=== PATIENT | female | born 1970 | race Caucasian/White ===

== ENCOUNTER → 2017-01-06 | Outpatient (CLI) | payer OTHER ==
[~2017-01-06] MED LIST: ALPR0.25 PO; AMLO5TAB2 PO; BACL10TA PO; CYAN10006 PO; DIPH50CA PO; DOCU-143 PO; FOLI0.8C PO; HYDR-3454 PO; HYDR12.56 PO; MELA1TAB11 PO; MELA5CAP PO; MELO7.5O PO; NORE-106 PO; OLME20TA22 PO; OXYC-197 PO; SIME125C79 PO; TRAM50TA2 PO; [UNRECOGNIZED DRUG - MIXTURE] PO
--- OUTSIDE RECORDS SUMMARY | 2017-01-06 10:32 | XMS REPORT | Continuity of Care Document ---
Author Author [facility] Address Unknown Phone Unavailable Allergies Active Description Code Type Severity Reaction Onset Reported/Identified Relationship to Patient Clinical Status Yes benzocaine Drug Allergy N/A N/A 12/21/2009 Yes benzocaine topical Drug Allergy 12/21/2009 Yes benzocaine [id number] Drug Allergy Unknown RASH 01/18/2016 Medications Problems Date Dx Coded Attending Type Code Diagnosis Diagnosed By 10/06/2009 TIMA ZHOU DO V72.9 ROUTINE GENITOURINARY EXAM 10/06/2009 V72.9 ROUTINE GENITOURINARY EXAM 10/06/2009 V72.9 ROUTINE GENITOURINARY EXAM 10/06/2009 V72.9 ROUTINE GENITOURINARY EXAM 10/06/2009 V72.9 ROUTINE GENITOURINARY EXAM 10/06/2009 ROSA CORLEY APRN V72.9 ROUTINE GENITOURINARY EXAM 10/06/2009 TIMA ZHOU DO V72.9 ROUTINE GENITOURINARY EXAM 10/06/2009 TIMA ZHOU DO V72.9 ROUTINE GENITOURINARY EXAM 11/24/2009 TIMA ZHOU DO 692.9 Dermatitis 11/24/2009 692.9 Dermatitis 11/24/2009 692.9 Dermatitis 11/24/2009 692.9 Dermatitis 11/24/2009 692.9 Dermatitis 11/24/2009 ROSA CORLEY APRN 692.9 Dermatitis 11/24/2009 TIMA ZHOU DO 692.9 Dermatitis 11/24/2009 TIMA ZHOU DO 692.9 Dermatitis 12/21/2009 TIMA ZHOU DO 461.8 Other Acute Sinusitis 12/21/2009 461.8 Other Acute Sinusitis 12/21/2009 461.8 Other Acute Sinusitis 12/21/2009 461.8 Other Acute Sinusitis 12/21/2009 461.8 Other Acute Sinusitis 12/21/2009 ROSA CORLEY APRN S 461.8 Other Acute Sinusitis 12/21/2009 TIMA ZHOU DO K 461.8 Other Acute Sinusitis 12/21/2009 TIMA ZHOU DO K 461.8 Other Acute Sinusitis 05/11/2010 TIMA ZHOU DO K 054.9 HERPES SIMPLEX ANY SITE 05/11/2010 054.9 HERPES SIMPLEX ANY SITE 05/11/2010 054.9 HERPES SIMPLEX ANY SITE 05/11/2010 054.9 HERPES SIMPLEX ANY SITE 05/11/2010 054.9 HERPES SIMPLEX ANY SITE 05/11/2010 ROSA CORLEY APRN S 054.9 HERPES SIMPLEX ANY SITE 05/11/2010 TIMA ZHOU DO K 054.9 HERPES SIMPLEX ANY SITE 05/11/2010 TIMA ZHOU DO K 054.9 HERPES SIMPLEX ANY SITE 10/29/2010 TIAM ZHOU DO V25.01 CONTRACEPTION COUNSELING- ORAL CONTRACEPTION 10/29/2010 TIMA ZHOU DO V65.45 Std Counseling 10/29/2010 TIMA ZHOU DO V74.5 STD SCREEN 10/29/2010 V25.01 CONTRACEPTION COUNSELING- ORAL CONTRACEPTION 10/29/2010 V65.45 Std Counseling 10/29/2010 V74.5 STD SCREEN 10/29/2010 V25.01 CONTRACEPTION COUNSELING- ORAL CONTRACEPTION 10/29/2010 V65.45 Std Counseling 10/29/2010 V74.5 STD SCREEN 10/29/2010 V25.01 CONTRACEPTION COUNSELING- ORAL CONTRACEPTION 10/29/2010 V65.45 Std Counseling 10/29/2010 V74.5 STD SCREEN 10/29/2010 V25.01 CONTRACEPTION COUNSELING- ORAL CONTRACEPTION 10/29/2010 V65.45 Std Counseling 10/29/2010 V74.5 STD SCREEN 10/29/2010 ROSA CORLEY APRN S V25.01 CONTRACEPTION COUNSELING- ORAL CONTRACEPTION 10/29/2010 ROSA CORLEY APRN S V65.45 Std Counseling 10/29/2010 ROSA CORLEY APRN S V74.5 STD SCREEN 10/29/2010 TIMA ZHOU DO V25.01 CONTRACEPTION COUNSELING- ORAL CONTRACEPTION 10/29/2010 TIMA ZHOU DO V65.45 Std Counseling 10/29/2010 TIMA ZHOU DO V74.5 STD SCREEN 10/29/2010 TIMA ZHOU DO Denny V25.01 CONTRACEPTION COUNSELING- ORAL CONTRACEPTION 10/29/2010 LJ ZHOU DOShahab Baldwin V65.45 Std Counseling 10/29/2010 LJ ZHOU DOShahab Baldwin V74.5 STD SCREEN 12/26/2010 LJ ZHOU DOShahab Baldwin 078.12 PLANTAR WART 12/26/2010 078.12 PLANTAR WART 12/26/2010 078.12 PLANTAR WART 12/26/2010 078.12 PLANTAR WART 12/26/2010 078.12 PLANTAR WART 12/26/2010 ROSA CORLEY APRN 078.12 PLANTAR WART 12/26/2010 WINNIE BADILLOTIMA 078.12 PLANTAR WART 12/26/2010 IWNNIE BADILLO TIMA K 078.12 PLANTAR WART 02/18/2011 WINNIE BADILLO TIMA K 723.1 CERVICALGIA 02/18/2011 723.1 CERVICALGIA 02/18/2011 723.1 CERVICALGIA 02/18/2011 723.1 CERVICALGIA 02/18/2011 723.1 CERVICALGIA 02/18/2011 ROSA CORLEY APRN 723.1 CERVICALGIA 02/18/2011 WINNIE BADILLOTIMA 723.1 CERVICALGIA 02/18/2011 WINNIE BADILLO TIMA K 723.1 CERVICALGIA 03/13/2011 WINNIE BADILLO TIMA Denny V05.3 Hepatitis A Vaccine 03/13/2011 TIMA ZHOU DO Denny V06.5 Dt, Tetanus-diphtheria [td] ,tdap 03/13/2011 V05.3 Hepatitis A Vaccine 03/13/2011 V06.5 Dt, Tetanus-diphtheria [td] ,tdap 03/13/2011 V05.3 Hepatitis A Vaccine 03/13/2011 V06.5 Dt, Tetanus-diphtheria [td] ,tdap 03/13/2011 V05.3 Hepatitis A Vaccine 03/13/2011 V06.5 Dt, Tetanus-diphtheria [td] ,tdap 03/13/2011 V05.3 Hepatitis A Vaccine 03/13/2011 V06.5 Dt, Tetanus-diphtheria [td] ,tdap 03/13/2011 ROSA CORLEY APRN V05.3 Hepatitis A Vaccine 03/13/2011 ROSA CORLEY APRN V06.5 Dt, Tetanus-diphtheria [td] ,tdap 03/13/2011 TIMA ZHOU DO K V05.3 Hepatitis A Vaccine 03/13/2011 LJ ZHOU DOA K V06.5 Dt, Tetanus-diphtheria [td] ,tdap 03/13/2011 LJ ZHOU DOA K V05.3 Hepatitis A Vaccine 03/13/2011 LJ ZHOU DOA K V06.5 Dt, Tetanus-diphtheria [td] ,tdap 03/21/2011 WINNIE DO TIMA K 462 Acute Pharyngitis 03/21/2011 462 Acute Pharyngitis 03/21/2011 462 Acute Pharyngitis 03/21/2011 462 Acute Pharyngitis 03/21/2011 462 Acute Pharyngitis 03/21/2011 ROSA CORLEY APRN 462 Acute Pharyngitis 03/21/2011 TIMA ZHOU DO K 462 Acute Pharyngitis 03/21/2011 TIMA ZHOU DO K 462 Acute Pharyngitis 06/04/2011 TIMA ZHOU DO K 729.5 ARM PAIN 06/04/2011 729.5 ARM PAIN 06/04/2011 729.5 ARM PAIN 06/04/2011 729.5 ARM PAIN 06/04/2011 729.5 ARM PAIN 06/04/2011 ROSA CORLEY APRN 729.5 ARM PAIN 06/04/2011 TIMA ZHOU DO K 729.5 ARM PAIN 06/04/2011 TIMA ZHOU DO K 729.5 ARM PAIN 06/05/2011 LJ ZHOU DOA K 729.5 ARM PAIN 06/05/2011 729.5 ARM PAIN 06/05/2011 729.5 ARM PAIN 06/05/2011 729.5 ARM PAIN 06/05/2011 729.5 ARM PAIN 06/05/2011 ROSA CORLEY APRN S 729.5 ARM PAIN 06/05/2011 WINNIE BADILLO TIMA K 729.5 ARM PAIN 06/05/2011 WINNIE BADILLO TIMA K 729.5 ARM PAIN 06/19/2011 TIMA ZHOU DO K 401.1 HYPERTENSION, BENIGN ESSENTIAL 06/19/2011 TIMA ZHOU DO K 427.9 ARRHYTHMIA, CARDIAC (SINUS) 06/19/2011 401.1 HYPERTENSION, BENIGN ESSENTIAL 06/19/2011 427.9 ARRHYTHMIA, CARDIAC (SINUS) 06/19/2011 401.1 HYPERTENSION, BENIGN ESSENTIAL 06/19/2011 427.9 ARRHYTHMIA, CARDIAC (SINUS) 06/19/2011 401.1 HYPERTENSION, BENIGN ESSENTIAL 06/19/2011 427.9 ARRHYTHMIA, CARDIAC (SINUS) 06/19/2011 401.1 HYPERTENSION, BENIGN ESSENTIAL 06/19/2011 427.9 ARRHYTHMIA, CARDIAC (SINUS) 06/19/2011 BARNEY CLINICAL RESEARCH NURSE, ROSA S 401.1 HYPERTENSION, BENIGN ESSENTIAL 06/19/2011 BARNEY CLINICAL RESEARCH NURSE, ROSA S 427.9 ARRHYTHMIA, CARDIAC (SINUS) 06/19/2011 TIMA ZHOU DO K 401.1 HYPERTENSION, BENIGN ESSENTIAL 06/19/2011 TIMA ZHOU DO K 427.9 ARRHYTHMIA, CARDIAC (SINUS) 06/19/2011 TIMA ZHOU DO K 401.1 HYPERTENSION, BENIGN ESSENTIAL 06/19/2011 TIMA ZHOU DO K 427.9 ARRHYTHMIA, CARDIAC (SINUS) 09/27/2011 TIMA ZHOU DO K V25.9 CONTRACEPTION MANAGEMENT 09/27/2011 TIMA ZHOU DO K V76.2 CERVICAL CANCER SCREENING (PAP SMEAR) 09/27/2011 V25.9 CONTRACEPTION MANAGEMENT 09/27/2011 V76.2 CERVICAL CANCER SCREENING (PAP SMEAR) 09/27/2011 V25.9 CONTRACEPTION MANAGEMENT 09/27/2011 V76.2 CERVICAL CANCER SCREENING (PAP SMEAR) 09/27/2011 V25.9 CONTRACEPTION MANAGEMENT 09/27/2011 V76.2 CERVICAL CANCER SCREENING (PAP SMEAR) 09/27/2011 V25.9 CONTRACEPTION MANAGEMENT 09/27/2011 V76.2 CERVICAL CANCER SCREENING (PAP SMEAR) 09/27/2011 BARNEY CLINICAL RESEARCH NURSE, ROSA S V25.9 CONTRACEPTION MANAGEMENT 09/27/2011 BARNEY CLINICAL RESEARCH NURSE, ROSA S V76.2 CERVICAL CANCER SCREENING (PAP SMEAR) 09/27/2011 TIMA ZHOU DO K V25.9 CONTRACEPTION MANAGEMENT 09/27/2011 LJ ZHOU DOA K V76.2 CERVICAL CANCER SCREENING (PAP SMEAR) 09/27/2011 TIMA ZHOU DO K V25.9 CONTRACEPTION MANAGEMENT 09/27/2011 TIMA ZHOU DO K V76.2 CERVICAL CANCER SCREENING (PAP SMEAR) 06/19/2012 TIMA ZHOU DO K 078.19 WARTS, COMMON 06/19/2012 078.19 WARTS, COMMON 06/19/2012 078.19 WARTS, COMMON 06/19/2012 078.19 WARTS, COMMON 06/19/2012 078.19 WARTS, COMMON 06/19/2012 ROSA CORLEY APRN 078.19 WARTS, COMMON 06/19/2012 TIMA ZHOU DO K 078.19 WARTS, COMMON 06/19/2012 ZHOU TIMA BADILLO K 078.19 WARTS, COMMON 09/01/2012 TIMA ZHOU DO K 300.4 DYSTHYMIC DISORDER 09/01/2012 300.4 DYSTHYMIC DISORDER 09/01/2012 300.4 DYSTHYMIC DISORDER 09/01/2012 300.4 DYSTHYMIC DISORDER 09/01/2012 300.4 DYSTHYMIC DISORDER 09/01/2012 ROSA CORLEY APRN 300.4 DYSTHYMIC DISORDER 09/01/2012 TIMA ZHOU DO K 300.4 DYSTHYMIC DISORDER 09/01/2012 TIMA ZHOU DO K 300.4 DYSTHYMIC DISORDER 01/13/2013 TIMA ZHOU DO K 786.50 CHEST PAIN 01/13/2013 786.50 CHEST PAIN 01/13/2013 786.50 CHEST PAIN 01/13/2013 786.50 CHEST PAIN 01/13/2013 ROSA CORLEY APRN 786.50 CHEST PAIN 01/13/2013 TIMA ZHOU DO K 786.50 CHEST PAIN 01/13/2013 TIMA ZHOU DO K 786.50 CHEST PAIN 02/22/2013 MONTEZ LIMA, PEDRITO Ot 401.9 02/22/2013 MONTEZ LIMA, PEDRITO Ot 780.79 02/22/2013 MONTEZ LIMA, PEDRITO Ot 784.0 02/22/2013 MONTEZ LIMA, PEDRITO Ot 786.50 02/22/2013 MONTEZ LIMA, PEDRITO Ot V58.69 03/03/2013 465.9 ACUTE UPPER RESPIRATORY INFECTIONS OF UNSPECIFIED SITE 03/03/2013 465.9 ACUTE UPPER RESPIRATORY INFECTIONS OF UNSPECIFIED SITE 03/03/2013 465.9 ACUTE UPPER RESPIRATORY INFECTIONS OF UNSPECIFIED SITE 03/03/2013 ROSA CORLEY APRN S 465.9 ACUTE UPPER RESPIRATORY INFECTIONS OF UNSPECIFIED SITE 03/03/2013 TIMA ZHOU DO K 465.9 ACUTE UPPER RESPIRATORY INFECTIONS OF UNSPECIFIED SITE 03/03/2013 TIMA ZHOU DO K 465.9 ACUTE UPPER RESPIRATORY INFECTIONS OF UNSPECIFIED SITE 03/17/2013 611.72 LUMP OR MASS IN BREAST 03/17/2013 V76.10 BREAST CANCER SCREENING 03/17/2013 611.72 LUMP OR MASS IN BREAST 03/17/2013 V76.10 BREAST CANCER SCREENING 03/17/2013 ROSA CORLEY APRN S 611.72 LUMP OR MASS IN BREAST 03/17/2013 EDWIN CORLEY APRNNDA S V76.10 BREAST CANCER SCREENING 03/17/2013 LJ ZHOU DOA K 611.72 LUMP OR MASS IN BREAST 03/17/2013 LJ ZHOU DOA K V76.10 BREAST CANCER SCREENING 03/17/2013 LJ ZHOU DOA K 611.72 LUMP OR MASS IN BREAST 03/17/2013 TIMA ZHOU DO K V76.10 BREAST CANCER SCREENING 07/29/2013 ROSA CORLEY APRN S 780.79 fatigue 07/29/2013 LJ ZHOU DOA K 780.79 fatigue 07/29/2013 LJ ZHOU DOA K 780.79 fatigue 08/03/2013 LJ ZHOU DOA K 787.02 NAUSEA ALONE 11/12/2014 Ot 401.9 11/12/2014 Ot 786.09 11/12/2014 Ot 794.31 11/12/2014 Ot V58.69 11/12/2014 Ot 401.9 11/12/2014 Ot 786.09 11/12/2014 Ot 794.31 11/12/2014 Ot 611.72 11/12/2014 CHRIS MCMANUS CLINICAL RESEARCH NURSE Ot 611.72 11/15/2014 CHAU LIMA, MAYA Gudino Ot 724.5 11/15/2014 CHAU LIMA, MAYA Gudino Ot 737.30 11/15/2014 CHAU LIMA, MAYA Gudino Ot E000.8 11/15/2014 CHAU LIMA, MAYA Gudino Ot E819.9 11/15/2014 MAYA RITCHIE MD Ot 724.5 11/15/2014 MAYA RITCHIE MD Ot 737.30 11/15/2014 CHAU LIMA, MAYA A Ot E000.8 11/15/2014 CHAU LIMA, MAYA A Ot E819.9 11/15/2014 CHAU LIMA, MAYA A Ot 724.5 11/15/2014 CHAU LIMA, MYAA A Ot 737.30 11/15/2014 CHAU LIMA, MAYA A Ot E000.8 11/15/2014 CHAU LIMA, MAYA A Ot E819.9 11/15/2014 CHAU LIMA, MAYA A Ot 724.5 11/15/2014 CHAU LIMA, MAYA A Ot 737.30 11/15/2014 CHAU LIMA, MAYA A Ot E000.8 11/15/2014 CHAU LIMA, MAYA A Ot E819.9 03/09/2015 CHAU LIMA, MAYA A Ot 724.5 03/09/2015 CHAU LIMA, MAYA A Ot 737.30 03/09/2015 CHAU LIMA, MAYA A Ot E000.8 03/09/2015 CHAU LIMA, MAYA A Ot E819.9 03/09/2015 CHAU LIMA, MAYA A Ot 724.5 03/09/2015 CHAU LIMA, MAYA A Ot 737.30 03/09/2015 CHAU LIMA, MAYA A Ot E000.8 03/09/2015 CHAU LIMA, MAYA A Ot E819.9 03/09/2015 Ot V76.12 03/09/2015 CLARK ROLAND ENCYCLOPEDIA RESEARCH WORKER Ot 401.9 03/09/2015 CLARK ROLAND ENCYCLOPEDIA RESEARCH WORKER Ot 780.79 03/09/2015 CLARK ROLAND ENCYCLOPEDIA RESEARCH WORKER Ot V58.69 03/09/2015 CLARK ROLAND ENCYCLOPEDIA RESEARCH WORKER Ot V72.62 08/24/2015 Ot V76.12 08/24/2015 CLARK ROLAND ENCYCLOPEDIA RESEARCH WORKER Ot 401.9 08/24/2015 CLARK ROLAND ENCYCLOPEDIA RESEARCH WORKER Ot 780.79 08/24/2015 CLARK ROLAND ENCYCLOPEDIA RESEARCH WORKER Ot V58.69 08/24/2015 CLARK ROLAND ENCYCLOPEDIA RESEARCH WORKER Ot V72.62 08/24/2015 CHAU LIMA, MAYA A Ot 724.5 08/24/2015 CHAU LIMA, MAYA A Ot 737.30 08/24/2015 MAYA RITCHIE MD Ot E000.8 08/24/2015 MAYA RITCHIE MD Ot E819.9 08/24/2015 ASUNCIONCLARK ENCYCLOPEDIA RESEARCH WORKER Ot 721.2 09/08/2015 CALOS SPAULDING CLINICAL RESEARCH NURSE Ot M54.2 10/04/2015 Ot V76.12 10/04/2015 ASUNCION CLARK Katelyn ENCYCLOPEDIA RESEARCH WORKER Ot 401.9 10/04/2015 ASUNCION CLARK Zepeda ENCYCLOPEDIA RESEARCH WORKER Ot 780.79 10/04/2015 ASUNCIONCLARK ENCYCLOPEDIA RESEARCH WORKER Ot V58.69 10/04/2015 ASUNCION CLARK Katelyn ENCYCLOPEDIA RESEARCH WORKER Ot V72.62 10/04/2015 CHUY ROLANDIE Katelyn ENCYCLOPEDIA RESEARCH WORKER Ot 721.2 10/04/2015 CALOS SPAULDING CLINICAL RESEARCH NURSE Ot M54.2 10/04/2015 Ot V76.12 10/04/2015 ASUNCION CLARK Katelyn ENCYCLOPEDIA RESEARCH WORKER Ot 401.9 10/04/2015 MADELAINE ROLANDHANIE Katelyn ENCYCLOPEDIA RESEARCH WORKER Ot 780.79 10/04/2015 ASUNCION CLARK Katelyn ENCYCLOPEDIA RESEARCH WORKER Ot V58.69 10/04/2015 ASUNCION CLARK Zepeda ENCYCLOPEDIA RESEARCH WORKER Ot V72.62 10/04/2015 ASUNCION CLARK Katelyn ENCYCLOPEDIA RESEARCH WORKER Ot 721.2 10/04/2015 CALOS SPAULDING CLINICAL RESEARCH NURSE Ot M54.2 10/05/2015 Ot V76.12 10/05/2015 ASUNCION CLARK Katelyn ENCYCLOPEDIA RESEARCH WORKER Ot 401.9 10/05/2015 ASUNCION CLARK Katelyn ENCYCLOPEDIA RESEARCH WORKER Ot 780.79 10/05/2015 ASUNCION CLARK Katelyn ENCYCLOPEDIA RESEARCH WORKER Ot V58.69 10/05/2015 ASUNCION CLARK Zepeda ENCYCLOPEDIA RESEARCH WORKER Ot V72.62 10/05/2015 ASUNCION CLARK Katelyn ENCYCLOPEDIA RESEARCH WORKER Ot 721.2 10/05/2015 CALOS SPAULDING CLINICAL RESEARCH NURSE Ot M54.2 10/24/2015 CALOS SPAULDING CLINICAL RESEARCH NURSE Ot R13.10 10/24/2015 CALOS SPAULDING CLINICAL RESEARCH NURSE Ot R49.0 10/24/2015 CALOS SPAULDING CLINICAL RESEARCH NURSE Ot R13.10 10/24/2015 CALOS SPAULDING CLINICAL RESEARCH NURSE Ot R49.0 10/24/2015 CALOS SPAULDING CLINICAL RESEARCH NURSE Ot Z12.31 10/31/2015 Ot V76.12 10/31/2015 ASUNCIONCLARK ENCYCLOPEDIA RESEARCH WORKER Ot 401.9 10/31/2015 ASUNCIONCLARK ENCYCLOPEDIA RESEARCH WORKER Ot 780.79 10/31/2015 ASUNCIONCLARK ENCYCLOPEDIA RESEARCH WORKER Ot V58.69 10/31/2015 ASUNCIONCLARK ENCYCLOPEDIA RESEARCH WORKER Ot V72.62 10/31/2015 ASUNCIONCLARK ENCYCLOPEDIA RESEARCH WORKER Ot 721.2 10/31/2015 CHELLYCALOS M CLINICAL RESEARCH NURSE Ot M54.2 10/31/2015 CHELLYLIZZIEIE M CLINICAL RESEARCH NURSE Ot R13.10 10/31/2015 CALOS SPAULDING M CLINICAL RESEARCH NURSE Ot R49.0 10/31/2015 CALOS SPAULDING M CLINICAL RESEARCH NURSE Ot R13.10 10/31/2015 LIZZIE SPAULDINGIE M CLINICAL RESEARCH NURSE Ot R49.0 10/31/2015 LIZZIE SPAULDINGIE M CLINICAL RESEARCH NURSE Ot Z12.31 10/31/2015 CALOS SPAULDING M CLINICAL RESEARCH NURSE Ot R13.10 10/31/2015 CALOS SPAULDING M CLINICAL RESEARCH NURSE Ot R49.0 11/03/2015 CHELLY CALOS M CLINICAL RESEARCH NURSE Ot R13.10 11/03/2015 CHELLY CALOS M CLINICAL RESEARCH NURSE Ot R49.0 12/28/2015 Ot V76.12 12/28/2015 ASUNCIONCLARK ENCYCLOPEDIA RESEARCH WORKER Ot 401.9 12/28/2015 ASUNCION CLARK Zepeda ENCYCLOPEDIA RESEARCH WORKER Ot 780.79 12/28/2015 ASUNCION CLARK Zepeda ENCYCLOPEDIA RESEARCH WORKER Ot V58.69 12/28/2015 ASUNCION CLARK Zepeda ENCYCLOPEDIA RESEARCH WORKER Ot V72.62 12/28/2015 ASUNCION CLARK Zepeda ENCYCLOPEDIA RESEARCH WORKER Ot 721.2 12/28/2015 CHELLY CALOS M CLINICAL RESEARCH NURSE Ot M54.2 12/28/2015 CALOS SPAULDING M CLINICAL RESEARCH NURSE Ot R13.10 12/28/2015 CHELLY CALOS M CLINICAL RESEARCH NURSE Ot R49.0 12/28/2015 CHELLY CALOS M CLINICAL RESEARCH NURSE Ot R13.10 12/28/2015 LIZZIE SPAULDINGIE M CLINICAL RESEARCH NURSE Ot R49.0 12/28/2015 CALOS SPAULDING M CLINICAL RESEARCH NURSE Ot Z12.31 12/28/2015 CALOS SPAULDING M CLINICAL RESEARCH NURSE Ot R13.10 12/28/2015 CALOS SPAULDING M CLINICAL RESEARCH NURSE Ot R49.0 12/28/2015 CLARK ROLAND ENCYCLOPEDIA RESEARCH WORKER Ot E04.1 12/28/2015 CLARK ROLAND ENCYCLOPEDIA RESEARCH WORKER Ot R49.0 12/28/2015 CALOS SPAULDING CLINICAL RESEARCH NURSE Ot M79.632 12/28/2015 CALOS SPAULDING CLINICAL RESEARCH NURSE Ot M79.642 01/18/2016 ELVIN LIMA, VIRGILIO Zepeda Ot E04.1 NONTOXIC SINGLE THYROID NODULE 01/18/2016 ELVIN LIMA, VIRGILIO M Ot Z01.812 ENCOUNTER FOR PREPROCEDURAL LABORATORY E 01/18/2016 ELVIN LIMA, VIRGILIO M Ot Z11.2 ENCOUNTER FOR SCREENING FOR OTHER BACTER 01/19/2016 ELVIN LIMA, VIRGILIO M Ot E04.1 01/19/2016 ELVIN LIMA, VIRGILIO M Ot Z01.812 01/19/2016 ELVIN LIMA, VIRGILIO M Ot Z11.2 02/07/2016 Ot V76.12 02/07/2016 CLARK ROLAND ENCYCLOPEDIA RESEARCH WORKER Ot 401.9 02/07/2016 CLARK ROLAND ENCYCLOPEDIA RESEARCH WORKER Ot 780.79 02/07/2016 CLARK ROLAND ENCYCLOPEDIA RESEARCH WORKER Ot V58.69 02/07/2016 CLARK ROLAND ENCYCLOPEDIA RESEARCH WORKER Ot V72.62 02/07/2016 CLARK ROLAND ENCYCLOPEDIA RESEARCH WORKER Ot 721.2 02/07/2016 CALOS SPAULDING CLINICAL RESEARCH NURSE Ot M54.2 02/07/2016 CALOS SPAULDING CLINICAL RESEARCH NURSE Ot R13.10 02/07/2016 CALOS SPAULDING CLINICAL RESEARCH NURSE Ot R49.0 02/07/2016 CALOS SPAULDING CLINICAL RESEARCH NURSE Ot R13.10 02/07/2016 CALOS SPAULDING CLINICAL RESEARCH NURSE Ot R49.0 02/07/2016 CALOS SPAULDING CLINICAL RESEARCH NURSE Ot Z12.31 02/07/2016 CALOS SPAULDING CLINICAL RESEARCH NURSE Ot R13.10 02/07/2016 CALOS SPAULDING CLINICAL RESEARCH NURSE Ot R49.0 02/07/2016 CLARK ROLAND ENCYCLOPEDIA RESEARCH WORKER Ot E04.1 02/07/2016 CLARK ROLAND ENCYCLOPEDIA RESEARCH WORKER Ot R49.0 02/07/2016 CALOS SPAULDING CLINICAL RESEARCH NURSE Ot M79.632 02/07/2016 CALOS SPAULDING CLINICAL RESEARCH NURSE Ot M79.642 02/07/2016 GRAHAM LIMA, GAETANO P Ot E04.1 02/08/2016 ELVIN LIMA, VIRGILIO M Ot E04.1 NONTOXIC SINGLE THYROID NODULE 02/08/2016 ELVIN LIMA, VIRGILIO M Ot E04.1 02/13/2016 ELVIN LIMA, VIRGILIO Zepeda Ot E04.1 NONTOXIC SINGLE THYROID NODULE 02/21/2016 ELVIN LIMA, VIRGILIO M Ot E04.1 NONTOXIC SINGLE THYROID NODULE 03/01/2016 CALOS SPAULDING CLINICAL RESEARCH NURSE Ot M79.632 PAIN IN LEFT FOREARM 03/01/2016 CALOS SPAULDING CLINICAL RESEARCH NURSE Ot M79.642 PAIN IN LEFT HAND 03/01/2016 GRAHAM LIMA, GAETANO P Ot E04.1 NONTOXIC SINGLE THYROID NODULE 03/06/2016 Ot V76.12 OTH SCREEN MAMMO-MALIGN NEOPLASM OF GINO 03/06/2016 CLARK ROLAND ENCYCLOPEDIA RESEARCH WORKER Ot 401.9 HYPERTENSION NOS 03/06/2016 CLARK ROLAND ENCYCLOPEDIA RESEARCH WORKER Ot 780.79 OTH MALAISE FATIGUE 03/06/2016 CLARK ROLAND ENCYCLOPEDIA RESEARCH WORKER Ot V58.69 OTH MED,LT,CURRENT USE 03/06/2016 CLARK ROLAND ENCYCLOPEDIA RESEARCH WORKER Ot V72.62 LAB EXAM ORDERED PART OF A ROUTINE GE 03/06/2016 CLARK ROLAND ENCYCLOPEDIA RESEARCH WORKER Ot 721.2 THORACIC SPONDYLOSIS 03/06/2016 CALOS SPAULDING CLINICAL RESEARCH NURSE Ot M54.2 CERVICALGIA 03/06/2016 CALOS SPAULDING CLINICAL RESEARCH NURSE Ot R13.10 DYSPHAGIA, UNSPECIFIED 03/06/2016 CALOS SPAULDING CLINICAL RESEARCH NURSE Ot R49.0 DYSPHONIA 03/06/2016 CALOS SPAULDING CLINICAL RESEARCH NURSE Ot R13.10 DYSPHAGIA, UNSPECIFIED 03/06/2016 CALOS SPAULDING CLINICAL RESEARCH NURSE Ot R49.0 DYSPHONIA 03/06/2016 CALOS SPAULDING CLINICAL RESEARCH NURSE Ot Z12.31 ENCNTR SCREEN MAMMOGRAM FOR MALIGNANT NE 03/06/2016 CALOS SPAULDING CLINICAL RESEARCH NURSE Ot R13.10 DYSPHAGIA, UNSPECIFIED 03/06/2016 CALOS SPAULDING CLINICAL RESEARCH NURSE Ot R49.0 DYSPHONIA 03/06/2016 CLARK ROLANDP Ot E04.1 NONTOXIC SINGLE THYROID NODULE 03/06/2016 CLARK ROLAND ENCYCLOPEDIA RESEARCH WORKER Ot R49.0 DYSPHONIA 03/06/2016 CALOS SPAULDING CLINICAL RESEARCH NURSE Ot M79.632 PAIN IN LEFT FOREARM 03/06/2016 CALOS SPAULDING CLINICAL RESEARCH NURSE Ot M79.642 PAIN IN LEFT HAND 03/06/2016 GRAHAM LIMA, GAETANO Vizcarra Ot E04.1 NONTOXIC SINGLE THYROID NODULE 03/06/2016 CLARK ROLAND ENCYCLOPEDIA RESEARCH WORKER Ot E04.1 NONTOXIC SINGLE THYROID NODULE 03/06/2016 CLARK ROLAND ENCYCLOPEDIA RESEARCH WORKER Ot R49.0 DYSPHONIA 03/18/2016 CALOS SPAULDING CLINICAL RESEARCH NURSE Ot E03.9 HYPOTHYROIDISM, UNSPECIFIED 06/20/2016 CHAU LIMA, MAYA Gudino Ot I10 ESSENTIAL (PRIMARY) HYPERTENSION 08/07/2016 ELVIN LIMA, VIRGILIO M Ot E04.1 NONTOXIC SINGLE THYROID NODULE 08/07/2016 CALOS SPAULDING CLINICAL RESEARCH NURSE Ot E03.9 HYPOTHYROIDISM, UNSPECIFIED 08/07/2016 CHAU LIMA, MAYA Gudino Ot I10 ESSENTIAL (PRIMARY) HYPERTENSION 08/08/2016 CHAU LIMA, MAYA Gudino Ot M21.379 FOOT DROP, UNSPECIFIED FOOT 08/08/2016 MAYA RITCHIE MD Ot R51 HEADACHE 08/09/2016 MAYA RITCHIE MD Ot M21.379 FOOT DROP, UNSPECIFIED FOOT 08/09/2016 MAYA RITCHIE MD Ot R51 HEADACHE 08/22/2016 MAYA RITCHIE MD Ot M54.2 CERVICALGIA 08/22/2016 MAYA RITCHIE MD Ot M62.81 MUSCLE WEAKNESS (GENERALIZED) 08/22/2016 MAYA RITCHIE MD Ot M54.2 CERVICALGIA 08/22/2016 MAYA RITCHIE MD Ot M62.81 MUSCLE WEAKNESS (GENERALIZED) 10/30/2016 TACOS LIMA, MARY Cardoso Ot 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 Visit Date/Time Discharge Status Pt. Type Provider Facility Loc./Unit Complaint [id number] 12/13/2013 14:34:00 12/13/2013 23: 59:59 CLS Outpatient TIMA ZHOU DO [id number] 08/03/2013 09:39:00 08/03/2013 23: 59:59 CLS Outpatient TIMA ZHOU DO [id number] 07/29/2013 11:44:00 07/29/2013 23: 59:59 CLS Outpatient ROSA CORLEY APRN [id number] 01/13/2013 09:51:00 01/13/2013 23: 59:59 [place] [id number] 09/01/2012 13:58:00 09/01/2012 23: 59:59 CLS Outpatient [id number] 04/16/2013 14:20:00 Document Registration [id number] 03/17/2013 13:31:00 Document Registration [id number] 03/03/2013 08:12:00 Document Registration
[2017-01-06 11:18] LABS: THYROID STIMULATING HORMONE 1.57 UIU/ML (0.35-4.94)
== END ==
LOC: LAB 10:27
PROVIDERS: ATTEND Nurse Practitioner Family
DX: E03.4 Atrophy of thyroid (acquired) (principal)
CPT/HCPCS: 36415; 84439; 84443

== ENCOUNTER 2017-01-10 07:38 | Outpatient (CLI) | payer OTHER ==
[~2017-01-10] VITALS: Ht 167.6 cm; Wt 77.1 kg
--- OUTSIDE RECORDS SUMMARY | 2017-01-10 07:43 | XMS REPORT | Continuity of Care Document ---
Author Author Formerly [facility] of [facility] Address Unknown Phone Unavailable Allergies Active Description Code Type Severity Reaction Onset Reported/Identified Relationship to Patient Clinical Status Yes benzocaine Drug Allergy N/A N/A 12/21/2009 Yes benzocaine topical Drug Allergy 12/21/2009 Yes benzocaine [id number] Drug Allergy Unknown RASH 01/18/2016 Medications Problems [...] K 054.9 HERPES SIMPLEX ANY SITE 10/29/2010 TIMA ZHOU DO V25.01 CONTRACEPTION COUNSELING- [...] 12/26/2010 WINNIE BADILLOTIMA 078.12 PLANTAR WART 12/26/2010 WINNIE BADILLO TIMA K 078.12 PLANTAR WART 02/18/2011 WINNIE BADILLO TIMA K 723.1 CERVICALGIA 02/18/2011 723.1 CERVICALGIA 02/18/2011 723.1 CERVICALGIA 02/18/2011 723.1 CERVICALGIA 02/18/2011 723.1 CERVICALGIA 02/18/2011 ROSA CORELY APRN 723.1 CERVICALGIA 02/18/2011 WINNIE BADILLOTIMA 723.1 [...] 06/19/2011 427.9 ARRHYTHMIA, CARDIAC (SINUS) 06/19/2011 BARNEY HOLLOW TILE PARTITION ERECTOR, ROSA S 401.1 HYPERTENSION, BENIGN ESSENTIAL 06/19/2011 BARNEY HOLLOW TILE PARTITION ERECTOR, ROSA S 427.9 ARRHYTHMIA, CARDIAC (SINUS) 06/19/2011 [...] CERVICAL CANCER SCREENING (PAP SMEAR) 09/27/2011 BARNEY HOLLOW TILE PARTITION ERECTOR, ROSA S V25.9 CONTRACEPTION MANAGEMENT 09/27/2011 BARNEY HOLLOW TILE PARTITION ERECTOR, ROSA S V76.2 CERVICAL CANCER SCREENING (PAP [...] UPPER RESPIRATORY INFECTIONS OF UNSPECIFIED SITE 03/03/2013 RSOA CORLEY APRN S 465.9 ACUTE UPPER RESPIRATORY [...] 11/12/2014 Ot 794.31 11/12/2014 Ot 611.72 11/12/2014 CHRSI MCMANUS HOLLOW TILE PARTITION ERECTOR Ot 611.72 11/15/2014 CHAU LIMA, MAYA Gudino [...] E819.9 03/09/2015 Ot V76.12 03/09/2015 CLARK ROLAND EQUIPMENT INSPECTOR Ot 401.9 03/09/2015 CLARK ROLAND EQUIPMENT INSPECTOR Ot 780.79 03/09/2015 CLARK ROLAND EQUIPMENT INSPECTOR Ot V58.69 03/09/2015 CLARK ROLAND EQUIPMENT INSPECTOR Ot V72.62 08/24/2015 Ot V76.12 08/24/2015 CLARK ROLAND EQUIPMENT INSPECTOR Ot 401.9 08/24/2015 CLARK ROLAND EQUIPMENT INSPECTOR Ot 780.79 08/24/2015 CLARK ROLAND EQUIPMENT INSPECTOR Ot V58.69 08/24/2015 CLARK ROLAND EQUIPMENT INSPECTOR Ot V72.62 08/24/2015 CHAU LIMA, MAYA A Ot 724.5 08/24/2015 CHAU LIMA, MAYA A Ot 737.30 08/24/2015 MAYA RITCHIE MD Ot E000.8 08/24/2015 MAYA RITCHIE MD Ot E819.9 08/24/2015 ASUNCIONCLARK EQUIPMENT INSPECTOR Ot 721.2 09/08/2015 CALOS SPAULDING HOLLOW TILE PARTITION ERECTOR Ot M54.2 10/04/2015 Ot V76.12 10/04/2015 ASUNCION CLARK Katelyn EQUIPMENT INSPECTOR Ot 401.9 10/04/2015 ASUNCION CLARK Zepeda EQUIPMENT INSPECTOR Ot 780.79 10/04/2015 ASUNCIONCLARK EQUIPMENT INSPECTOR Ot V58.69 10/04/2015 ASUNCION CLARK Katelyn EQUIPMENT INSPECTOR Ot V72.62 10/04/2015 CHUY ROLANDIE Katelyn EQUIPMENT INSPECTOR Ot 721.2 10/04/2015 CALOS SPAULDING HOLLOW TILE PARTITION ERECTOR Ot M54.2 10/04/2015 Ot V76.12 10/04/2015 ASUNCION CLARK Katelyn EQUIPMENT INSPECTOR Ot 401.9 10/04/2015 MADELAINE ROLANDHANIE Katelyn EQUIPMENT INSPECTOR Ot 780.79 10/04/2015 ASUNCION CLARK Katelyn EQUIPMENT INSPECTOR Ot V58.69 10/04/2015 ASUNCION CLARK Zepeda EQUIPMENT INSPECTOR Ot V72.62 10/04/2015 ASUNCION CLARK Katelyn EQUIPMENT INSPECTOR Ot 721.2 10/04/2015 CALOS SPAULDING HOLLOW TILE PARTITION ERECTOR Ot M54.2 10/05/2015 Ot V76.12 10/05/2015 ASUNCION CLARK Katelyn EQUIPMENT INSPECTOR Ot 401.9 10/05/2015 ASUNCION CLARK Katelyn EQUIPMENT INSPECTOR Ot 780.79 10/05/2015 ASUNCION CLARK Katelyn EQUIPMENT INSPECTOR Ot V58.69 10/05/2015 ASUNCION CLARK Zepeda EQUIPMENT INSPECTOR Ot V72.62 10/05/2015 ASUNCION CLARK Katelyn EQUIPMENT INSPECTOR Ot 721.2 10/05/2015 CALOS SPAULDING HOLLOW TILE PARTITION ERECTOR Ot M54.2 10/24/2015 CALOS SPAULDING HOLLOW TILE PARTITION ERECTOR Ot R13.10 10/24/2015 CALOS SPAULDING HOLLOW TILE PARTITION ERECTOR Ot R49.0 10/24/2015 CALOS SPAULDING HOLLOW TILE PARTITION ERECTOR Ot R13.10 10/24/2015 CALOS SPAULDING HOLLOW TILE PARTITION ERECTOR Ot R49.0 10/24/2015 CALOS SPAULDING HOLLOW TILE PARTITION ERECTOR Ot Z12.31 10/31/2015 Ot V76.12 10/31/2015 ASUNCIONCLARK EQUIPMENT INSPECTOR Ot 401.9 10/31/2015 ASUNCIONCLARK EQUIPMENT INSPECTOR Ot 780.79 10/31/2015 ASUNCIONCLARK EQUIPMENT INSPECTOR Ot V58.69 10/31/2015 ASUNCIONCLARK EQUIPMENT INSPECTOR Ot V72.62 10/31/2015 ASUNCIONCLARK EQUIPMENT INSPECTOR Ot 721.2 10/31/2015 CHELLYCALOS M HOLLOW TILE PARTITION ERECTOR Ot M54.2 10/31/2015 CHELLYLIZZIEIE M HOLLOW TILE PARTITION ERECTOR Ot R13.10 10/31/2015 CALOS SPAULDING M HOLLOW TILE PARTITION ERECTOR Ot R49.0 10/31/2015 CALOS SPAULDING M HOLLOW TILE PARTITION ERECTOR Ot R13.10 10/31/2015 LIZZIE SPAULDINGIE M HOLLOW TILE PARTITION ERECTOR Ot R49.0 10/31/2015 LIZZIE SPAULDINGIE M HOLLOW TILE PARTITION ERECTOR Ot Z12.31 10/31/2015 CALOS SPAULDING M HOLLOW TILE PARTITION ERECTOR Ot R13.10 10/31/2015 CALOS SPAULDING M HOLLOW TILE PARTITION ERECTOR Ot R49.0 11/03/2015 CHELLY CALOS M HOLLOW TILE PARTITION ERECTOR Ot R13.10 11/03/2015 CHELLY CALOS M HOLLOW TILE PARTITION ERECTOR Ot R49.0 12/28/2015 Ot V76.12 12/28/2015 ASUNCIONCLARK EQUIPMENT INSPECTOR Ot 401.9 12/28/2015 ASUNCION CLARK Zepeda EQUIPMENT INSPECTOR Ot 780.79 12/28/2015 ASUNCION CLARK Zepeda EQUIPMENT INSPECTOR Ot V58.69 12/28/2015 ASUNCION CLARK Zepeda EQUIPMENT INSPECTOR Ot V72.62 12/28/2015 ASUNCION CLARK Zepeda EQUIPMENT INSPECTOR Ot 721.2 12/28/2015 CHELLY CALOS M HOLLOW TILE PARTITION ERECTOR Ot M54.2 12/28/2015 CALOS SPAULDING M HOLLOW TILE PARTITION ERECTOR Ot R13.10 12/28/2015 CHELLY CALOS M HOLLOW TILE PARTITION ERECTOR Ot R49.0 12/28/2015 CHELLY CALOS M HOLLOW TILE PARTITION ERECTOR Ot R13.10 12/28/2015 LIZZIE SPAULDINGIE M HOLLOW TILE PARTITION ERECTOR Ot R49.0 12/28/2015 CALOS SPAULDING M HOLLOW TILE PARTITION ERECTOR Ot Z12.31 12/28/2015 CALOS SPAULDING M HOLLOW TILE PARTITION ERECTOR Ot R13.10 12/28/2015 CALOS SPAULDING M HOLLOW TILE PARTITION ERECTOR Ot R49.0 12/28/2015 CLARK ROLAND EQUIPMENT INSPECTOR Ot E04.1 12/28/2015 CLARK ROALND EQUIPMENT INSPECTOR Ot R49.0 12/28/2015 CALOS SPAULDING HOLLOW TILE PARTITION ERECTOR Ot M79.632 12/28/2015 CALOS SPAULDING HOLLOW TILE PARTITION ERECTOR Ot M79.642 01/18/2016 ELVIN LIMA, VIRGILIO Zepeda [...] Z11.2 02/07/2016 Ot V76.12 02/07/2016 CLARK ROLAND EQUIPMENT INSPECTOR Ot 401.9 02/07/2016 CLARK ROLAND EQUIPMENT INSPECTOR Ot 780.79 02/07/2016 CLARK ROLAND EQUIPMENT INSPECTOR Ot V58.69 02/07/2016 CLARK ROLAND EQUIPMENT INSPECTOR Ot V72.62 02/07/2016 CLARK ROLAND EQUIPMENT INSPECTOR Ot 721.2 02/07/2016 CALOS SPAULDING HOLLOW TILE PARTITION ERECTOR Ot M54.2 02/07/2016 CALOS SPAULDING HOLLOW TILE PARTITION ERECTOR Ot R13.10 02/07/2016 CALOS SPAULDING HOLLOW TILE PARTITION ERECTOR Ot R49.0 02/07/2016 CALOS SPAULDING HOLLOW TILE PARTITION ERECTOR Ot R13.10 02/07/2016 CALOS SPAULDING HOLLOW TILE PARTITION ERECTOR Ot R49.0 02/07/2016 CALOS SPAULDING HOLLOW TILE PARTITION ERECTOR Ot Z12.31 02/07/2016 CALOS SPAULDING HOLLOW TILE PARTITION ERECTOR Ot R13.10 02/07/2016 CALOS SPAULDING HOLLOW TILE PARTITION ERECTOR Ot R49.0 02/07/2016 CLARK ROLAND EQUIPMENT INSPECTOR Ot E04.1 02/07/2016 CLARK ROLAND EQUIPMENT INSPECTOR Ot R49.0 02/07/2016 CALOS SPAULDING HOLLOW TILE PARTITION ERECTOR Ot M79.632 02/07/2016 CALOS SPAULDING HOLLOW TILE PARTITION ERECTOR Ot M79.642 02/07/2016 GRAHAM LIMA, GAETANO P Ot E04.1 02/08/2016 ELVIN LIMA, VIRGILIO M Ot E04.1 NONTOXIC SINGLE THYROID NODULE 02/08/2016 ELVIN LIMA, VIRGILIO M Ot E04.1 02/13/2016 ELVIN LIMA, VIRGILIO Zepeda Ot E04.1 NONTOXIC SINGLE THYROID NODULE 02/21/2016 ELVIN LIMA, VIRGILIO M Ot E04.1 NONTOXIC SINGLE THYROID NODULE 03/01/2016 CALOS SPAULDING HOLLOW TILE PARTITION ERECTOR Ot M79.632 PAIN IN LEFT FOREARM 03/01/2016 CALOS SPAULDING HOLLOW TILE PARTITION ERECTOR Ot M79.642 PAIN IN LEFT HAND 03/01/2016 GRAHAM LIMA, GAETANO P Ot E04.1 NONTOXIC SINGLE THYROID NODULE 03/06/2016 Ot V76.12 OTH SCREEN MAMMO-MALIGN NEOPLASM OF GINO 03/06/2016 CLARK ROLAND EQUIPMENT INSPECTOR Ot 401.9 HYPERTENSION NOS 03/06/2016 CLARK ROLAND EQUIPMENT INSPECTOR Ot 780.79 OTH MALAISE FATIGUE 03/06/2016 CLARK ROLAND EQUIPMENT INSPECTOR Ot V58.69 OTH MED,LT,CURRENT USE 03/06/2016 CLARK ROLAND EQUIPMENT INSPECTOR Ot V72.62 LAB EXAM ORDERED PART OF A ROUTINE GE 03/06/2016 CLARK ROLAND EQUIPMENT INSPECTOR Ot 721.2 THORACIC SPONDYLOSIS 03/06/2016 CALOS SPAULDING HOLLOW TILE PARTITION ERECTOR Ot M54.2 CERVICALGIA 03/06/2016 CALOS SPAULDING HOLLOW TILE PARTITION ERECTOR Ot R13.10 DYSPHAGIA, UNSPECIFIED 03/06/2016 CALOS SPAULDING HOLLOW TILE PARTITION ERECTOR Ot R49.0 DYSPHONIA 03/06/2016 CALOS SPAULDING HOLLOW TILE PARTITION ERECTOR Ot R13.10 DYSPHAGIA, UNSPECIFIED 03/06/2016 CALOS SPAULDING HOLLOW TILE PARTITION ERECTOR Ot R49.0 DYSPHONIA 03/06/2016 CALOS SPAULDING HOLLOW TILE PARTITION ERECTOR Ot Z12.31 ENCNTR SCREEN MAMMOGRAM FOR MALIGNANT NE 03/06/2016 CALOS SPAULDING HOLLOW TILE PARTITION ERECTOR Ot R13.10 DYSPHAGIA, UNSPECIFIED 03/06/2016 CALOS SPAULDING HOLLOW TILE PARTITION ERECTOR Ot R49.0 DYSPHONIA 03/06/2016 CLARK ROLANDP Ot E04.1 NONTOXIC SINGLE THYROID NODULE 03/06/2016 CLARK ROLAND EQUIPMENT INSPECTOR Ot R49.0 DYSPHONIA 03/06/2016 CALOS SPAULDING HOLLOW TILE PARTITION ERECTOR Ot M79.632 PAIN IN LEFT FOREARM 03/06/2016 CALOS SPAULDING HOLLOW TILE PARTITION ERECTOR Ot M79.642 PAIN IN LEFT HAND 03/06/2016 GRAHAM LIMA, GAETANO Vizcarra Ot E04.1 NONTOXIC SINGLE THYROID NODULE 03/06/2016 CLARK ROLAND Ot E04.1 NONTOXIC SINGLE THYROID NODULE 03/06/2016 CLARK ROLAND Ot R49.0 DYSPHONIA 03/18/2016 CALOS SPAULDING HOLLOW TILE PARTITION ERECTOR Ot E03.9 HYPOTHYROIDISM, UNSPECIFIED 06/20/2016 CHAU LIMA, MAYA Gudino Ot I10 ESSENTIAL (PRIMARY) HYPERTENSION 08/07/2016 ELVIN LIMA, VIRGILIO Zepeda Ot E04.1 NONTOXIC SINGLE THYROID NODULE 08/07/2016 CALOS SPAULDING HOLLOW TILE PARTITION ERECTOR Ot E03.9 HYPOTHYROIDISM, UNSPECIFIED 08/07/2016 CHAU LIMA, MAYA Gudino Ot I10 ESSENTIAL (PRIMARY) HYPERTENSION 08/08/2016 CHAU LIMA, MAYA A Ot M21.379 FOOT DROP, UNSPECIFIED FOOT 08/08/2016 MAYA RITCHIE MD A Ot R51 HEADACHE 08/09/2016 CHAU LIMA, MAYA A Ot M21.379 FOOT DROP, UNSPECIFIED FOOT 08/09/2016 CHAU LIMA, MAYA A Ot R51 HEADACHE 08/22/2016 MAYA RITCHIE MD Ot M54.2 CERVICALGIA 08/22/2016 MAYA RITCHIE MD Ot M62.81 MUSCLE WEAKNESS (GENERALIZED) 08/22/2016 MAYA RITCHIE MD Ot M54.2 CERVICALGIA 08/22/2016 MAYA RITCHIE MD Ot M62.81 MUSCLE WEAKNESS (GENERALIZED) 10/30/2016 TACOS LIMA, MARY Cardoso Ot M51.14 INTVRT DISC DISORDERS W RADICULOPATHY, T 01/07/2017 CLARK ROLAND Ot E03.4 ATROPHY OF THYROID (ACQUIRED) Procedures Code Description [place] [address] HEART CATH 2012 58375 OXIMETRY 2012 85269 URINE TEST (IN-HOUSE) 03/17/2013 84810 MAMMOGRAM DX, EDY 03/23/2013 27379 ROUTINE VENIPUNCTURE 07/29/2013 89375 OXIMETRY - OVERNIGHT 07/29/2013 66361 CBC 07/29/2013 61221 CMP 07/29/2013 3878680 GFR CALC (RESULT ONLY) 07/29/2013 72175 TSH 07/29/2013 73279 T4 FREE 2012 Results Test Result Range THYROID STIMULATING HORMONE - 01/06/17 10:34 THYROID STIMULATING HORMONE 1.57 u[iU]/mL 0.35-4.94 Serum or plasma thyroxine (T4) free measurement (mass/volume) - 01/06/17 10:34 Serum or plasma thyroxine (T4) free measurement (mass/volume) 1.08 ng/dL 0.70-1.48 Encounters ACCT No. Visit Date/Time Discharge Status Pt. Type Provider Facility Loc./Unit Complaint [id number] 12/13/2013 14:34:00 12/13/2013 23: 59:59 [facility] Outpatient TIMA ZHOU DO [id number] 08/03/2013 09:39:00 08/03/2013 23: 59:59 [facility] Outpatient TIMA ZHOU DO [id number] 07/29/2013 11:44:00 07/29/2013 23: 59:59 [facility] ROSA CORLEY APRN [id number] 01/13/2013 09:51:00 01/13/2013 23: 59:59 [facility] [place] [place] [id number] 09/01/2012 13:58:00 09/01/2012 23: 59:59 [facility] Outpatient [id number] 04/16/2013 14:20:00 Document Registration [id number] 03/17/2013 13:31:00 Document Registration [id number] 03/03/2013 08:12:00 Document Registration
[2017-01-10 07:57] VITALS: BP 129/90
[2017-01-10] MEDS ORDERED: DEXAMETHASONE PF 10 MG/ML (DECADRON) VIAL ONE (08:02)
[2017-01-10 08:38] VITALS: BP 130/92
--- NOTE | 2017-01-10 11:56 | Pain Medicine-Procedure ---
Procedure Pre-Op/Post-Op Diagnosis Diagnosis: disc disorder with radiculopathy, cervical Indications for Operation Neck pain Attending Surgeon Jenny Procedure Date of Service: Jan 10, 2017 Procedure: Cervical Epidural Steroid Injection at the C7-T1 Level under Fluoroscopic Guidance Procedure: Pt was identified in the holding area. After risks, benefits, and alternatives were discussed with the patient, informed consent was obtained. An IV was placed by nursing staff prior to procedure. Patient was brought to the fluoroscopy suite and placed prone on the operating table. A time out was performed. Vital signs were monitored throughout the procedure. The patients neck was prepped and draped in the usual sterile fashion. The patients skin was anesthetized using 1% Lidocaine. A 18 gauge tuohy needle was inserted and advanced to the C7-T1 epidural space under fluoroscopic guidance using the loss of resistance technique. The needle position was confirmed in the AP and lateral view. After negative aspiration 2 ml of non-ionic contrast was injected under live fluoroscopy which showed good spread of the contrast in the epidural space at the appropriate level, there was no intravascular or subarachnoid spread. Again, after negative aspiration, 3 ml of preservative free normal saline and 10 mg of dexamethasone was injected. The needle was removed and the patient was transferred to the recovery area in stable condition. And after a brief period of observation was discharged to home in stable condition with no new neurologic deficits. Complications None MARY BALDERRAMA MD Jan 10, 2017 11:56 am
== END 2017-01-10 08:39 ==
LOC: CARD 07:38
PROVIDERS: ATTEND Pain Medicine Pain Medicine
DX: M50.13 Cervical disc disorder with radiculopathy, cervicothoracic region (principal); Z79.899 Other long term (current) drug therapy; M51.14 Intervertebral disc disorders with radiculopathy, thoracic region
CPT/HCPCS: 62321

== ENCOUNTER 2017-02-24 12:13 | Outpatient (CLI) | payer OTHER ==
[~2017-02-24] VITALS: Ht 167.6 cm; Wt 74.8 kg
[2017-02-24] MEDS ORDERED: DEXAMETHASONE PF 10 MG/ML (DECADRON) VIAL ONE (12:18)
[2017-02-24 12:29] VITALS: BP 135/100
[2017-02-24 13:12] VITALS: BP 158/104
--- NOTE | 2017-02-24 14:31 | Pain Medicine-Procedure ---
Procedure Pre-Op/Post-Op Diagnosis Diagnosis: disc disorder with radiculopathy, thoracic Indications for Operation Mid back pain Attending Surgeon Jenny Procedure Date of Service: February 24, 2017 Procedure: Thoracic epidural steroid injection at T4-T5 Level under Fluoroscopic Guidance Procedure: Pt was identified in the holding area. After risks, benefits, and alternatives were discussed with the patient, informed consent was obtained. An IV was placed by nursing staff prior to procedure. Patient was brought to the fluoroscopy suite and placed prone on the operating table. A time out was performed. Vital signs were monitored throughout the procedure. The patients neck and mid back was prepped and draped in the usual sterile fashion. The patients skin was anesthetized using 1% Lidocaine. A 18 gauge tuohy needle was inserted and advanced to the T4-T5 epidural space under fluoroscopic guidance using the loss of resistance technique. The needle position was confirmed in the AP and lateral view. After negative aspiration 2 ml of non-ionic contrast was injected under live fluoroscopy which showed good spread of the contrast in the epidural space at the appropriate level, there was no intravascular or subarachnoid spread. Again, after negative aspiration, 3 ml of preservative free normal saline and 10 mg of dexamethasone was injected. The needle was removed and the patient was transferred to the recovery area in stable condition. And after a brief period of observation was discharged to home in stable condition with no new neurologic deficits. Complications None MARY BALDERRAMA MD February 24, 2017 2:31 pm
== END 2017-02-24 13:14 ==
LOC: CARD 12:13
PROVIDERS: ATTEND Pain Medicine Pain Medicine
DX: M51.14 Intervertebral disc disorders with radiculopathy, thoracic region (principal); Z79.899 Other long term (current) drug therapy
CPT/HCPCS: 62321

== ENCOUNTER 2017-09-12 13:17 | Outpatient (RCR) | payer OTHER ==
[~2017-09-12 13:17] MED LIST changes: -SIME125C79 PO; +SIME125C85 PO
== END 2017-10-23 13:49 | disposition home or self-care (01) ==
DX: M54.2 Cervicalgia (principal)

== ENCOUNTER → 2017-10-17 | Outpatient (CLI) | payer OTHER ==
[2017-10-17 10:05] LABS: BASOPHILS # (AUTO) 0.1 10^3/uL (0.0-0.1); BASOPHILS % (AUTO) 1 % (0-10); EOSINOPHILS # (AUTO) 0.5 10^3/uL (0.0-0.3); EOSINOPHILS % (AUTO) 7 % (0-10); LYMPHOCYTES # (AUTO) 2.2 X 10^3 (1.0-4.0); LYMPHOCYTES % (AUTO) 34 % (12-44); MEAN CORPUSCULAR HEMOGLOBIN 31 PG (25-34); MEAN CORPUSCULAR HGB CONC 34 G/DL (32-36); MEAN CORPUSCULAR VOLUME 90 FL (80-99); MEAN PLATELET VOLUME 10.8 FL (7.4-10.4); MONOCYTES # (AUTO) 0.7 X 10^3 (0.0-1.0); MONOCYTES % (AUTO) 10 % (0-12); NEUTROPHILS # (AUTO) 3.3 X 10^3 (1.8-7.8); NEUTROPHILS % (AUTO) 49 % (42-75); PLATELET COUNT 273 10^3/uL (130-400); RED BLOOD COUNT 4.63 10^6/uL (4.35-5.85); RED CELL DISTRIBUTION WIDTH 12.7 % (10.0-14.5); WHITE BLOOD COUNT 6.7 10^3/uL (4.3-11.0)
[2017-10-17 10:32] LABS: ALANINE AMINOTRANSFERASE 35 U/L (0-55); ALBUMIN 3.8 GM/DL (3.2-4.5); ANION GAP 10 MMOL/L (5-14); ASPARTATE AMINO TRANSFERASE 27 U/L (5-34); BILIRUBIN,TOTAL 0.4 MG/DL (0.1-1.0); BLOOD UREA NITROGEN 14 MG/DL (7-18); BUN/CREATININE RATIO 20; CALCIUM 8.7 MG/DL (8.5-10.1); CARBON DIOXIDE 25 MMOL/L (21-32); CHLORIDE 104 MMOL/L (98-107); CHOLESTEROL 198 MG/DL (< 200); CREATININE SERUM 0.71 MG/DL (0.60-1.30); DIRECT LDL 125 MG/DL (1-129); GFR ESTIMATED > 60; GLUCOSE 95 MG/DL (70-105); SODIUM 139 MMOL/L (135-145); TOTAL PROTEIN 6.9 GM/DL (6.4-8.2); TRIGLYCERIDES 78 MG/DL (<150); VLDL CHOLESTEROL 16 MG/DL (5-40)
[2017-10-17 10:52] LABS: THYROID STIMULATING HORMONE 0.77 UIU/ML (0.35-4.94)
--- NOTE | 2017-10-20 09:10 | Diagnostic Imaging Report ---
Bilateral screening mammogram 2D views with tomosynthesis The current study was also evaluated with a Computer Aided Detection (CAD) system. Indication: Screening. No current complaints stated on the questionnaire. COMPARISON: 10/05/2015. Findings: The breasts are composed of heterogeneously dense parenchyma which may decrease mammographic sensitivity. No mass, architectural distortion or suspicious clustered calcifications seen. Allowing for technique and positional differences, no suspicious change is seen. IMPRESSION: Dense breasts with no definite change. ACR BI-RADS Category 2: Benign findings. Result letter will be mailed to the patient. Note: At least 10% of breast cancer is not imaged by mammography. Dictated by: Dictated on workstation # [id number]
== END ==
LOC: RAD 09:46
PROVIDERS: ATTEND Family Medicine
DX: Z12.31 Encounter for screening mammogram for malignant neoplasm of breast (principal); I10 Essential (primary) hypertension; M79.1 Myalgia; E55.9 Vitamin D deficiency, unspecified; Z79.899 Other long term (current) drug therapy
CPT/HCPCS: 36415; 77067; 80053; 80061; 82306; 84439; 84443; 85025

== ENCOUNTER → 2018-02-19 | Outpatient (CLI) | payer OTHER ==
[~2018-02-19] MED LIST changes: +OLME20TA21 PO; -OLME20TA22 PO
[2018-02-19 12:51] LABS: FREE T4 (FREE THYROXINE) 1.25 NG/DL (0.70-1.48)
== END ==
LOC: LAB 12:04
PROVIDERS: ATTEND Family Medicine
DX: E03.9 Hypothyroidism, unspecified (principal); E55.9 Vitamin D deficiency, unspecified
CPT/HCPCS: 36415; 82306; 84439; 84443

== ENCOUNTER → 2018-07-23 | Outpatient (CLI) | payer OTHER ==
[~2018-07-23] MED LIST changes: -OXYC-197 PO; +OXYC1TAB87 PO
[2018-07-23 10:31] LABS: BASOPHILS % (AUTO) 1 % (0-10); EOSINOPHILS # (AUTO) 0.2 10^3/uL (0.0-0.3); EOSINOPHILS % (AUTO) 2 % (0-10); HEMATOCRIT 42 % (35-52); HEMOGLOBIN 14.4 G/DL (11.5-16.0); LYMPHOCYTES # (AUTO) 1.7 X 10^3 (1.0-4.0); LYMPHOCYTES % (AUTO) 20 % (12-44); MEAN CORPUSCULAR HEMOGLOBIN 31 PG (25-34); MEAN CORPUSCULAR HGB CONC 34 G/DL (32-36); MEAN CORPUSCULAR VOLUME 90 FL (80-99); MEAN PLATELET VOLUME 10.4 FL (7.4-10.4); MONOCYTES # (AUTO) 0.6 X 10^3 (0.0-1.0); MONOCYTES % (AUTO) 8 % (0-12); NEUTROPHILS # (AUTO) 5.9 X 10^3 (1.8-7.8); NEUTROPHILS % (AUTO) 70 % (42-75); PLATELET COUNT 320 10^3/uL (130-400); RED BLOOD COUNT 4.67 10^6/uL (4.35-5.85); RED CELL DISTRIBUTION WIDTH 12.9 % (10.0-14.5); WHITE BLOOD COUNT 8.4 10^3/uL (4.3-11.0)
[2018-07-23 10:51] LABS: ALANINE AMINOTRANSFERASE 89 U/L (0-55); ALBUMIN 4.2 GM/DL (3.2-4.5); ALKALINE PHOSPHATASE 73 U/L (40-136); BILIRUBIN,TOTAL 0.4 MG/DL (0.1-1.0); BUN/CREATININE RATIO 21; CALCIUM 9.3 MG/DL (8.5-10.1); CARBON DIOXIDE 22 MMOL/L (21-32); CHLORIDE 106 MMOL/L (98-107); CHOLESTEROL 197 MG/DL (< 200); GFR ESTIMATED > 60; GLUCOSE 110 MG/DL (70-105); HDL CHOLESTEROL 55 MG/DL (40-60); POTASSIUM 4.5 MMOL/L (3.6-5.0); SODIUM 138 MMOL/L (135-145); TOTAL PROTEIN 7.4 GM/DL (6.4-8.2); TRIGLYCERIDES 102 MG/DL (<150); VLDL CHOLESTEROL 20 MG/DL (5-40)
[2018-07-23 11:12] LABS: FREE T4 (FREE THYROXINE) 1.14 NG/DL (0.70-1.48)
== END ==
LOC: LAB 10:16
PROVIDERS: ATTEND Family Medicine
DX: E03.9 Hypothyroidism, unspecified (principal); I10 Essential (primary) hypertension; E66.9 Obesity, unspecified
CPT/HCPCS: 36415; 80053; 80061; 84439; 84443; 85025

== ENCOUNTER → 2019-01-04 | Outpatient (CLI) | payer OTHER ==
[~2019-01-04] MED LIST changes: -HYDR-3454 PO; +HYDR-3455 PO; -SIME125C85 PO; +SIME125C86 PO
[2019-01-04 10:48] LABS: BASOPHILS # (AUTO) 0.1 10^3/uL (0.0-0.1); BASOPHILS % (AUTO) 1 % (0-10); EOSINOPHILS # (AUTO) 0.3 10^3/uL (0.0-0.3); EOSINOPHILS % (AUTO) 4 % (0-10); HEMATOCRIT 40 % (35-52); HEMOGLOBIN 13.3 G/DL (11.5-16.0); LYMPHOCYTES # (AUTO) 2.3 X 10^3 (1.0-4.0); LYMPHOCYTES % (AUTO) 36 % (12-44); MEAN CORPUSCULAR HEMOGLOBIN 30 PG (25-34); MEAN CORPUSCULAR HGB CONC 33 G/DL (32-36); MEAN CORPUSCULAR VOLUME 90 FL (80-99); MONOCYTES # (AUTO) 0.6 X 10^3 (0.0-1.0); MONOCYTES % (AUTO) 10 % (0-12); NEUTROPHILS # (AUTO) 3.2 X 10^3 (1.8-7.8); NEUTROPHILS % (AUTO) 50 % (42-75); PLATELET COUNT 270 10^3/uL (130-400); RED CELL DISTRIBUTION WIDTH 13.1 % (10.0-14.5); WHITE BLOOD COUNT 6.4 10^3/uL (4.3-11.0)
[2019-01-04 11:11] LABS: ALANINE AMINOTRANSFERASE 27 U/L (0-55); ALBUMIN 3.8 GM/DL (3.2-4.5); ALKALINE PHOSPHATASE 56 U/L (40-136); BILIRUBIN,TOTAL 0.2 MG/DL (0.1-1.0); BUN/CREATININE RATIO 24; CALCIUM 8.5 MG/DL (8.5-10.1); CARBON DIOXIDE 23 MMOL/L (21-32); CHLORIDE 109 MMOL/L (98-107); CHOLESTEROL 185 MG/DL (< 200); CREATININE SERUM 0.72 MG/DL (0.60-1.30); GFR ESTIMATED > 60; GLUCOSE 90 MG/DL (70-105); HDL CHOLESTEROL 62 MG/DL (40-60); POTASSIUM 4.1 MMOL/L (3.6-5.0); SODIUM 142 MMOL/L (135-145); TOTAL PROTEIN 6.9 GM/DL (6.4-8.2); TRIGLYCERIDES 126 MG/DL (<150); VLDL CHOLESTEROL 25 MG/DL (5-40)
[2019-01-04 11:34] LABS: FREE T4 (FREE THYROXINE) 1.02 NG/DL (0.70-1.48)
== END ==
LOC: SDC 09:54
PROVIDERS: ATTEND Family Medicine
DX: Z00.00 Encounter for general adult medical examination without abnormal findings (principal); I10 Essential (primary) hypertension; Z79.899 Other long term (current) drug therapy
CPT/HCPCS: 36415; 80053; 80061; 82306; 84439; 84443; 85025

== ENCOUNTER → 2019-03-30 | Outpatient (CLI) | payer OTHER ==
--- NOTE | 2019-03-30 10:24 | Diagnostic Imaging Report ---
INDICATION: Status post fall down steps several days ago. Pain. Bruising. TECHNIQUE: Three views of the left ankle CORRELATION STUDY: None FINDINGS: The bony alignment is anatomic. The talar dome is intact. The ankle mortise is maintained. There is no acute fracture or dislocation. Soft tissues are unremarkable. IMPRESSION: Negative for acute bony abnormality of the ankle. Dictated by: Dictated on workstation # [id number]
== END ==
LOC: RAD 09:16
PROVIDERS: ATTEND Nurse Practitioner Family
DX: M25.572 Pain in left ankle and joints of left foot (principal); W10.8XXA Fall (on) (from) other stairs and steps, initial encounter
CPT/HCPCS: 73610

== ENCOUNTER → 2019-05-13 | Outpatient (CLI) | payer OTHER ==
[2019-05-13 13:29] LABS: FREE T4 (FREE THYROXINE) 1.23 NG/DL (0.70-1.48)
== END ==
LOC: LAB 12:39
PROVIDERS: ATTEND Nurse Practitioner Family
DX: E03.9 Hypothyroidism, unspecified (principal)
CPT/HCPCS: 36415; 84439; 84443

== ENCOUNTER → 2019-05-27 | Outpatient (CLI) | payer OTHER ==
[~2019-05-27] MED LIST changes: +CYAN-41 PO; -CYAN10006 PO; +GADOBUTROL 10 MMOL/10 ML (GADAVIST) VIAL IV ONE
--- NOTE | 2019-05-27 10:18 | Diagnostic Imaging Report ---
PROCEDURE: MR imaging of the brain with and without contrast. TECHNIQUE: Multiplanar, multisequence MR imaging of the brain was performed with and without contrast. INDICATION: Headaches and fatigue with abnormal MRI findings on previous examination. FINDINGS: Ventricles and sulci are within normal limits for size. The scattered subcortical and deep foci of T2 prolongation in both cerebral hemispheres have not changed in overall number or morphology. There is no associated restricted diffusion. There is no abnormal mass effect or shift of midline structures. There is no MRI evidence of hemorrhage nor is there abnormal contrast enhancement. Visualized paranasal sinuses are clear. There is no evidence of ocular or orbital abnormality. IMPRESSION: Stable MRI of the brain. Small foci of T2 prolongation in the cerebral white matter may represent gliosis from microvascular ischemia or other insults however there is no evidence of acute intracranial abnormality or adverse change. Dictated by: Dictated on workstation # [id number]
== END ==
LOC: RAD 09:11
PROVIDERS: ATTEND Family Medicine
DX: R51 Headache (principal); R53.83 Other fatigue; R90.82 White matter disease, unspecified
CPT/HCPCS: 70553

== ENCOUNTER → 2019-08-24 | Outpatient (CLI) | payer OTHER ==
[~2019-08-24] MED LIST changes: -GADOBUTROL 10 MMOL/10 ML (GADAVIST) VIAL IV ONE
--- NOTE | 2019-08-24 16:26 | Diagnostic Imaging Report ---
PROCEDURE: US Non-ob pelvis comp/trans. TECHNIQUE: Multiple realtime grayscale images were obtained of the pelvis in various projections endovaginally. Transabdominal imaging was also performed. INDICATION: Dyspareunia and pelvic pain. Patient underwent right oophorectomy in 1994. FINDINGS: The uterus measures 7.4 x 4.8 x 4.0 cm. Endometrium is 6 mm in thickness. No myometrial mass is detected. The right ovary is surgically absent. The left ovary measures 3.6 x 1.8 x 1.6 cm. There is blood flow to left ovary. No adnexal mass or free fluid is seen. There is a small cervical nabothian cyst. IMPRESSION: Status post right oophorectomy. No acute features detected. Dictated by: Dictated on workstation # [id number]
== END ==
LOC: RAD 15:17
PROVIDERS: ATTEND Obstetrics & Gynecology
DX: Z12.31 Encounter for screening mammogram for malignant neoplasm of breast (principal); N94.10 Unspecified dyspareunia; Z90.721 Acquired absence of ovaries, unilateral
CPT/HCPCS: 76830; 76856

== ENCOUNTER → 2019-08-26 | Outpatient (CLI) | payer OTHER ==
--- NOTE | 2019-08-26 13:19 | Diagnostic Imaging Report ---
INDICATION: Routine screening. COMPARISON: Comparison is made with prior mammograms from 10/17/2017 and 10/05/2015. TECHNIQUE: 2-D and 3-D bilateral screening mammography was performed. The current study was also evaluated with a Computer Aided Detection (CAD) system. 3-D tomosynthesis was also performed and reviewed. FINDINGS: Both breasts remain heterogeneously dense, limiting the sensitivity of mammography. A circumscribed nodule in the axillary tail region right breast is noted, perhaps an intraparenchymal lymph node. No spiculated mass or malignant-appearing microcalcifications are seen. A BB marker was placed in the area of palpable abnormality in the left breast; patient states it has been present for several years. No underlying abnormality is seen. IMPRESSION: No mammographic features suspicious for malignancy are identified. Continued clinical follow-up of palpable abnormality in the left breast is recommended. If this persists, ultrasound of this area could be performed for further evaluation. ACR BI-RADS Category 2: Benign findings. Result letter will be mailed to the patient. Note: At least 10% of breast cancer is not imaged by mammography. Dictated by: Dictated on workstation # [id number]
== END ==
LOC: RAD 11:33
PROVIDERS: ATTEND Obstetrics & Gynecology
DX: Z12.31 Encounter for screening mammogram for malignant neoplasm of breast (principal); N94.19 Other specified dyspareunia; R10.2 Pelvic and perineal pain
CPT/HCPCS: 77067

== ENCOUNTER 2019-10-01 14:07 | Outpatient (RCR) | payer OTHER ==
[~2019-10-01] VITALS: Ht 167.7 cm; Wt 87.7 kg
[~2019-10-01 14:07] MED LIST changes: +ALPR0.5T7 PO; +AMLO5TAB9 PO; +CHOL5000 PO; +CYCL10TA9 PO; +DESV50TA PO; +LEVO100T PO; +LIRA3PEN SQ; +MELO15TA39 PO; +MELO7.5T46 PO; +MTP25TSR PO; +NORE-108 PO; +PREG100C PO; +PREG200C PO; +TOPI50TA13 PO; -TRAM50TA2 PO; +TRM50T PO; +VITA1CAP42 PO
[2019-10-01 14:33] LABS: BASOPHILS # (AUTO) 0.1 10^3/uL (0.0-0.1); BASOPHILS % (AUTO) 1 % (0-10); EOSINOPHILS # (AUTO) 0.2 10^3/uL (0.0-0.3); EOSINOPHILS % (AUTO) 2 % (0-10); HEMATOCRIT 42 % (35-52); HEMOGLOBIN 14.3 G/DL (11.5-16.0); LYMPHOCYTES # (AUTO) 3.6 X 10^3 (1.0-4.0); LYMPHOCYTES % (AUTO) 33 % (12-44); MEAN CORPUSCULAR HEMOGLOBIN 30 PG (25-34); MEAN CORPUSCULAR HGB CONC 34 G/DL (32-36); MEAN CORPUSCULAR VOLUME 89 FL (80-99); MEAN PLATELET VOLUME 11.2 FL (7.4-10.4); MONOCYTES # (AUTO) 0.9 X 10^3 (0.0-1.0); MONOCYTES % (AUTO) 9 % (0-12); NEUTROPHILS % (AUTO) 56 % (42-75); PLATELET COUNT 317 10^3/uL (130-400); RED CELL DISTRIBUTION WIDTH 13.4 % (10.0-14.5); WHITE BLOOD COUNT 10.7 10^3/uL (4.3-11.0)
== END 2019-10-01 14:45 | disposition home or self-care (01) ==
LOC: PREOP 14:07
PROVIDERS: ATTEND Obstetrics & Gynecology
DX: Z01.818 Encounter for other preprocedural examination (principal); Z11.2 Encounter for screening for other bacterial diseases; N80.9 Endometriosis, unspecified
CPT/HCPCS: 36415; 85025; 86850; 86900; 86901; 87081

== ENCOUNTER 2019-10-04 06:00 | Day surgery (SDC) | payer OTHER ==
[~2019-10-04] VITALS: Ht 167.7 cm; Wt 87.7 kg
[2019-10-04] VITALS (13 sets, daily range): BP systolic 112–122; BP diastolic 71–85
[2019-10-04] MEDS ORDERED: LACTATED RINGERS 1,000 ML IV ONE (06:07)
[2019-10-04] MEDS ORDERED: metroNIDAZOLE 500MG/100ML IVPB 100 ML IV ONE (06:15)
[2019-10-04] MEDS ORDERED: ceFAZolin 2 GM IV Premixed 50 ML IV ONE (06:15)
[2019-10-04] MEDS ORDERED: LIDOCAINE PF 2% 5 ML (XYLOCAINE) VIAL ONE (06:44)
[2019-10-04] MEDS ORDERED: SEVOFLURANE (ULTANE) 15 ML INHAL SOLN ONE ×3 (06:44→08:45)
[2019-10-04] MEDS ORDERED: ROCURONIUM 10 MG/ML 5 ML SYRINGE IV ONE (06:44)
[2019-10-04] MEDS ORDERED: ONDANSETRON 4 MG/2 ML (SDV) Z0FRAN ONE ×2 (06:44→06:50)
[2019-10-04] MEDS ORDERED: proPOfol 200 MG/20 ML (DIPRIVAN) VIAL IV ONE (06:44)
[2019-10-04] MEDS ORDERED: NEOSTIGMINE 3 MG/3 ML VIAL ONE (06:44)
[2019-10-04] MEDS ORDERED: DEXAMETHASONE 10 MG/ML (DECADRON) 1 ML VIAL ONE (06:44)
[2019-10-04] MEDS ORDERED: GLYCOPYRROLATE 0.2 MG/ML (ROBINUL) 2 ML VIAL ONE (06:44)
[2019-10-04] MEDS ORDERED: MIDAZOLAM 2 MG/2 ML (VERSED) VIAL ONE (06:45)
[2019-10-04] MEDS ORDERED: fentaNYL INJECTION 100 MCG/2 ML AMP ONE ×2 (06:45→08:19)
[2019-10-04] MEDS ORDERED: ceFAZolin 2 GM/50 ML NS 50 ML ONE (06:49)
[2019-10-04] MEDS ORDERED: metroNIDAZOLE 500MG/100ML IVPB 100 ML ONE (06:49)
[2019-10-04] MEDS ORDERED: FAMOTIDINE 20MG/2ML IV (PEPCID) ONE (06:50)
[2019-10-04] MEDS ORDERED: SCOPOLAMINE 1.5 MG (TRANSDERM-SCOP) PATCH ONE (06:50)
--- NOTE | 2019-10-04 07:04 | Progress Note-Pre Operative ---
Pre-Operative Progress Note H&P Reviewed The H&P was reviewed, patient examined and no changes noted. Date Seen by Provider: Oct 04, 2019 Time Seen by Provider: 07:00 Date H&P Reviewed: Oct 04, 2019 Time H&P Reviewed: 07:02 Pre-Operative Diagnosis: CPP, Endometriosis GAETANO SHEIKH DO Oct 04, 2019 07:04 POS
[2019-10-04] MEDS ORDERED: LACTATED RINGERS 1,000 ML IV SCH (07:05)
[2019-10-04] MEDS: LACTATED RINGERS 1,000 ML IV PRN ×2 (07:07→08:12)
[2019-10-04] MEDS ORDERED: BUPIVACAINE 0.5% 30 ML (SENSORCAINE) VIAL ONE (07:08)
[2019-10-04] MEDS ORDERED: SIME80TA16 PO ×2 (07:14)
[2019-10-04] MEDS ORDERED: DOCU100C37 PO ×2 (07:14)
[2019-10-04] MEDS ORDERED: IBUP-844 PO ×2 (07:14)
[2019-10-04] MEDS ORDERED: OXYC1TAB87 PO ×2 (07:14)
[2019-10-04] MEDS ORDERED: ONDANSETRON 4 MG/2 ML (SDV) Z0FRAN IV PRN (07:15)
[2019-10-04] MEDS ORDERED: SIMETHICONE 80 MG (MYLICON) CHEW PO PRN (07:15)
[2019-10-04] MEDS ORDERED: ANTACID SUSP 30 ML UDC (MYLANTA) PO PRN (07:15)
[2019-10-04] MEDS ORDERED: FAMOTIDINE 20MG/2ML IV (PEPCID) IV ONE (07:15)
[2019-10-04] MEDS ORDERED: DOCUSATE SODIUM 100 MG (COLACE) CAP PO PRN (07:15)
[2019-10-04] MEDS ORDERED: ZOLPIDEM 5 MG (AMBIEN) TAB PO PRN (07:15)
[2019-10-04] MEDS ORDERED: KETOROLAC 30 MG/ML VIAL IV PRN (07:15)
[2019-10-04] MEDS ORDERED: ceFAZolin 2 GM/50 ML NS 50 ML IV ONE (07:15)
[2019-10-04] MEDS ORDERED: CHLORASEPTIC LOZENGE MM PRN (07:15)
[2019-10-04] MEDS ORDERED: SCOPOLAMINE 1.5 MG (TRANSDERM-SCOP) PATCH TOP ONE (07:15)
[2019-10-04] MEDS ORDERED: oxyCODONE/APAP 5/325MG (PERCOCET 5) TABLET PO PRN (07:15)
[2019-10-04] MEDS ORDERED: ONDANSETRON 4 MG/2 ML (SDV) Z0FRAN IV ONE (07:15)
--- NOTE | 2019-10-04 07:16 | Discharge Inst-Women's Service ---
Discharge Inst-Women's Serv Depart Medication/Instructions New, Converted or Re-Newed RX: RX on Chart Problems Reviewed?: Yes Consults/Follow Up Additional Follow Up: Yes Orders/Referrals Dr. Mathis in 7-10 days and in 8 weeks Activity Activity: Activity as Tolerated Driving Instructions: No Driving for 1 Week NO SMOKING: NO SMOKING Nothing Inside Vagina: No Douching, No [place], No Tampons Diet Discharge Diet: No Restrictions Symptoms to Report to : Bleeding Excessive, Pain Increased, Fever Over 101 Degrees F, Vaginal Bleeding Increase, Questions/Concerns For Any Problems or Questions: Contact Your Physician Skin/Wound Care Infection Signs and Symptoms: Increased Redness, Foul Odor of Wound, Increased Drainage, Skin Itchy or Has a Rash, Increased Swelling, Temperature Above 101 F Operative Area Clean and Dry: Keep Incision Clean/Dry Stitches/Felicia/Dermabond: Dermabond, Care of Stitches Bathing Instructions: GAETANO Doe DO Oct 04, 2019 07:16 POS
[2019-10-04] MEDS ORDERED: PHENYLEPHRINE 100 MCG/ML 10 ML (ANESTHESIA) SYR ONE (07:59)
[2019-10-04] MEDS ORDERED: morphine INJ 10 MG/ML 1ML (SYR OR VIAL) IVP ONE (09:30)
[2019-10-04] MEDS ORDERED: ONDANSETRON 4 MG/2 ML (SDV) Z0FRAN IVP PRN (09:30)
[2019-10-04] MEDS ORDERED: HYDROmorphone 2 MG/ML VIAL (DILAUDID) IV ONE (09:30)
[2019-10-04] MEDS ORDERED: KETOROLAC 30 MG/ML VIAL ONE (09:31)
[2019-10-04] MEDS ORDERED: morphine INJ 10 MG/ML 1ML (SYR OR VIAL) ONE (09:31)
--- NOTE | 2019-10-04 10:20 | NUR ---
RUDDY LORENZO admitted to room 3304-1 VIA PT BED FROM [facility] BY RANDY CANNON ESTERS AND EMULSIFIERS SUPERVISOR AFTER A ROBOTIC ASSISTED TOTAL LAPAROSCOPIC HYSTERECTOMY, LEFT SALPINGO-OOPHORECTOMY AND LYSIS OF ADHESIONS TODAY BY DR. SHEIKH. RUDDY LORENZO introduced to surroundings, call light, bed controls, phone, TV, temperature control, lights, meal times, smoking policy, visitor policy, side rail policy, bathrooms and showers. Patient Rights given to patient in the handbook.
--- NOTE | 2019-10-04 10:30 | NUR ---
IV TUBING CHANGED AND PLACED ON PUMP. VSS. CALF SCDS ON BILATERALLY. ABD SOFT. LAP SITES X3 D/I. NARVAEZ PATENT TO DD WITH CLEAR YELLOW URINE IN BAG. RT NOTIFIED OF NEED FOR INCENTIVE SPIROMETRY. RATES PAIN 11/05. FAMILY AT BEDSIDE. ORIENTED TO CALL LIGHT OPERATION AND MENU.
--- NOTE | 2019-10-04 12:45 | NUR ---
PT CONTINUES TO DO WELL. EATING LUNCH. FAMILY AT BEDSIDE.
--- NOTE | 2019-10-04 13:15 | NUR ---
NARVAEZ D/C'ED. PERICARE PERFORMED WITH PAD/UNDERWEAR APPLIED.
--- NOTE | 2019-10-04 13:30 | NUR ---
IV TO SALINE LOCK. PT TAKING LARGE AMOUNTS OF IV FLUIDS. UP TO THE BATHROOM. STATES FEELS LIKE SHE COULD VOID. HAD 850 CC CLEAR YELLOW URINE IN NARVAEZ BAG. VOIDED 40CC URINE. ANXIOUS TO GO HOME.
--- NOTE | 2019-10-04 14:25 | NUR ---
AMANDA PAYAN IN TO SEE PT. PT MAY GO IF VOIDS AGAIN.
--- NOTE | 2019-10-04 15:30 | NUR ---
PREPARING FOR DISCHARGE. PT HAS VOIDED 3 TIMES SINCE NARVAEZ OUT. TAKING LOTS OF P.O. FLUIDS, AND AMBULATING IN THE GOLD.
[2019-10-04] MEDS ORDERED: IBUPROFEN 600 MG (MOTRIN) TAB PO ONE (15:53)
--- NOTE | 2019-10-04 16:05 | NUR ---
DISCHARGE INSTRUCTIONS REVIEWED WITH COPY TO PT. RXS GIVEN. STATES UNDERSTANDING OF ALL INSTRUCTIONS AND NEED TO F/U SCHEDULED AND NEEDED.
--- NOTE | 2019-10-04 16:15 | NUR ---
DISMISSED VIA W/C FROM WS IN STABLE CONDITION TO FAMILY CAR WHERE S.O. WAS WAITING FOR PT. ACC BY RETA ROMERO.
--- NOTE | 2019-10-04 20:05 | OPERATIVE REPORT ---
DATE OF SERVICE: PREOPERATIVE DIAGNOSIS: A 49-year-old female with chronic pelvic pain. POSTOPERATIVE DIAGNOSES: A 49-year-old female with chronic pelvic pain plus extensive filmy adhesions of the pelvic abdomen as well as the peritoneum of the anterior abdominal wall and omentum. PROCEDURE: Robotic-assisted total laparoscopic hysterectomy with left salpingo-oophorectomy and lysis of adhesions. SURGEON: Goran Sheikh DO RN DELIVERY: Robyn Riojas DNP, who was necessary for retraction of vital structures throughout the procedure and administrative library assistant. ANESTHESIA: General endotracheal. ESTIMATED BLOOD LOSS: 50 mL. URINE OUTPUT: 300 mL clear at the end of the procedure. FLUIDS: 1500 mL of lactated Ringer's solution. FINDINGS: Extensive filmy adhesions of the omentum to the anterior abdominal wall, some adhesions of the left ovary around the left adnexa, fallopian tube and left pelvic sidewall, adhesions of the omentum to the vesicouterine peritoneum. Otherwise, grossly normal appearing uterus, absent of right ovary, normal appearing external female genitalia. SPECIMEN SENT: Uterus and left fallopian tube and ovary. INDICATIONS FOR PROCEDURE: This 49-year-old female is a patient who had seen in my office for chronic pelvic pain. Ultrasound revealed no findings. However, she did describe a history of endometriosis in the past. She reports that intercourse has become intolerable and that she was having pain every time affecting her marriage as well as affecting other aspects of her life and job. She wished to proceed with hysterectomy, had been extensively counseled about this in the past. She wanted to review all of her options, which we did review; however, she still felt that the best option for her was proceeding with hysterectomy. Risks of the procedure were discussed with the patient in detail and after all of her questions were answered including possible need for reoperation, possible recovery timeframe, possible need for laparotomy, risk from anesthesia and even . After all of her questions were answered, consent was obtained, the patient was taken to the operating room. OPERATIVE REPORT IN DETAIL: Once in the operating room, anesthesia was found to be adequate, placed in dorsal lithotomy position, prepped and draped in normal sterile fashion. A timeout was performed. Patel catheter was placed using sterile technique. A weighted speculum inserted to the patient's vagina. Right angle retractor was used to visualize the cervix. It was grasped at 12 o'clock position using a single tooth tenaculum. An 0 Vicryl suture was placed anterior lip of the cervix and the suture was then used as my retraction point. A tenaculum was then removed. I then gently sound the uterine cavity, which sound to be 8 cm. I selected an 8 cm Alexia uterine manipulator tip and a 3.5 cm colpotomy ring. The manipulator tip was advanced into the uterus where the balloon was deployed and the colpotomy ring was advanced around the vaginal fornix and excellent manipulation is noted on bimanual at that point. All the other instruments were removed from the patient's vagina except for the manipulator and the catheter. I then performed a change of gloves obtained my attention to the abdomen where infraumbilically I infiltrated this area using 0.25% Marcaine to make an 8 mm incision, directed Veress needle through the incision and directed placement was confirmed using saline drop test. I then proceeded with insufflation using CO2 gas and opening pressure of 5 mmHg was noted. I proceeded to maximum pressure of 15 mmHg and then removed the Veress needle and introduced an 8 mm blunt da Michelle camera trocar. Once this was in place, I am able to confirm intraperitoneal placement using the da Michelle laparoscope. I then had the patient placed in steep Trendelenburg. There are some adhesions of the anterior abdominal wall that had to be navigated in order to place two lateral trocars, but I do place them using direct visualization. The skin was infiltrated using 0.25% Marcaine with 8 mm incisions were made with a knife and the trocars were placed under direct visualization of laparoscope. Once these trocars were in place, I am able to bring the da Michelle robot and docked in appropriate fashion placing the vessel sealer in the left hand and monopolar ellen in the right hand. I then took my place at the da Michelle operative consult. I began the case by taking down the filmy adhesions, allowing adequate visualization of the pelvic anatomy. I also take down the adhesions of the fallopian tube and the left ovary, which begins to start some bleeding. At that point, I decided to proceed with taking down and removing the left ovary. I started at the infundibulopelvic ligament on the left side, bipolar cauterized and transected using the vessel sealer. The remainder of the dissection is similar bilaterally. I then take down the round ligament using bipolar cautery, transected using the vessel sealer and then grasped the broad ligament, bipolar cauterized and transected using the vessel sealer. I then created a separation between the anterior and posterior leaflets of the broad ligament anteriorly was taken to the anterior vaginal fornix, posterior leaflet of the broad ligament was taken around to the posterior vaginal fornix. This allows me to skeletonize the uterine vessels laterally, which I then bipolar cauterized and transected using the vessel sealer. I then created a colpotomy at 12 o'clock position using monopolar ellen and took this circumferentially around the vaginal fornix amputating the cervix from the vagina. The cervix, uterus and left fallopian tube and ovary were then removed through the vagina. The vaginal cuff and the lateral vaginal apices, I was then reapproximated using 2-0 Vicryl suture in a [id number] fashion colposuspending the uterosacral ligaments. I then closed the remainder of the vaginal cuff using 2-0 V-Loc in a running fashion, after which there was no active bleeding noted from any of my dissection planes. I then undocked the da Michelle robot and proceeded with remainder of the case laparoscopically. I copiously irrigated the pelvis using normal saline. Once again, there was no active bleeding noted from any of my dissection planes. I placed Surgiflo hemostatic agent over all my planes of dissection to ensure excellent postoperative hemostasis and then have the patient taken out of steep Trendelenburg where I removed the lateral trocars under direct visualization of laparoscope. The infraumbilical trocar was left in place to introduce 10 mL of 0.25% Marcaine and to release insufflation. I then removed this trocar as well. The skin reapproximated using 4-0 Monocryl in an interrupted subcuticular stitches. Dermabond was applied to the Incisions and Band-Aids were placed over the incision as well. Patel catheter was left in place. The patient tolerated the procedure well and sent to recovery in stable condition. Lap and sponge counts were correct at the end of the procedure. Instrument counts correct as well. Job ID: [id number] DocumentID: [id number] Dictated Date: 10/04/2019 11:27:14 Missile Control Pilot Date: 10/04/2019 20:04:20 Dictated By: GORAN SHEIKH DO
[2019-10-04] MEDS ORDERED: IBUPROFEN 600 MG (MOTRIN) TAB PO SCH (23:45)
--- NOTE | 2019-10-05 08:34 | Anesthesia-General Post-Op ---
General Patient Condition Mental Status/LOC: Same as Preop Cardiovascular: Satisfactory Nausea/Vomiting: Absent Respiratory: Satisfactory Pain: Controlled Complications: Absent Post Op Complications Complications None Follow Up Care/Instructions Patient Instructions None needed. Anesthesia/Patient Condition Patient Condition Late entry Post-op Note Patient was seen yesterday at 1450 and she was doing well, no complaints, stable vital signs, no apparent adverse anesthesia problems. She was ready for discharge to home yesterday. CHRISTIN SANCHEZ DO Oct 05, 2019 08:34 POS
== END 2019-10-04 16:15 | disposition home or self-care (01) ==
LOC: SDC 06:00 → WS 10:20 → SDC 16:15
PROVIDERS: ATTEND Obstetrics & Gynecology
DX: D25.1 Intramural leiomyoma of uterus (principal); D26.9 Other benign neoplasm of uterus, unspecified; N73.6 Female pelvic peritoneal adhesions (postinfective); N88.8 Other specified noninflammatory disorders of cervix uteri; N80.0 Endometriosis of uterus; N83.8 Other noninflammatory disorders of ovary, fallopian tube and broad ligament; I10 Essential (primary) hypertension; G43.909 Migraine, unspecified, not intractable, without status migrainosus; M47.819 Spondylosis without myelopathy or radiculopathy, site unspecified; M48.02 Spinal stenosis, cervical region; G47.00 Insomnia, unspecified; F32.9 Major depressive disorder, single episode, unspecified; F41.9 Anxiety disorder, unspecified; Z79.899 Other long term (current) drug therapy; Z90.89 Acquired absence of other organs; Z88.8 Allergy status to other drugs, medicaments and biological substances; Z82.49 Family history of ischemic heart disease and other diseases of the circulatory system; Z83.3 Family history of diabetes mellitus; Z80.9 Family history of malignant neoplasm, unspecified
CPT/HCPCS: 86850; 86900; 86901; 88307; 94664

== ENCOUNTER 2019-10-05 05:30 | Outpatient (CLI) | payer OTHER ==
[~2019-10-05 05:30] MED LIST changes: +DOCU100C37 PO; +IBUP-844 PO; +SIME80TA16 PO
[2019-10-06] MEDS ORDERED: OXYC-471 PO (12:57)
[2019-10-06] MEDS ORDERED: ONDA4TAB11 PO (13:02)
== END 2019-10-05 12:17 | disposition home or self-care (01) ==
LOC: PREOP 05:30
PROVIDERS: ATTEND Orthopaedic Surgery
DX: Z01.818 Encounter for other preprocedural examination (principal)

== ENCOUNTER 2019-10-06 10:00 | Day surgery (SDC) | payer OTHER ==
--- NOTE | 2019-09-22 11:41 | HISTORY AND PHYSICAL ---
DATE OF SERVICE: ADMISSION HISTORY AND PHYSICAL DATE OF ADMISSION: 10/06/2019. This will be for outpatient surgery on 10/06/2019 for right carpal tunnel release and right index finger trigger release. HISTORY OF PRESENT ILLNESS: The patient is a 49-year-old right hand dominant female with progressively worsening right hand and wrist pain as well as episodic numbness and tingling. She reports continued weakness. She reports pain and swelling at the base of her index finger. She has undergone an injection and reports that the triggering has stopped, but she has continued pain. Due to functional impairment and failure to improve with extensive conservative measures including injections and splints, the patient has elected to proceed with surgical intervention. REVIEW OF SYSTEMS: No chest pain, no shortness of breath and no dysuria. PAST MEDICAL HISTORY: Hypertension, hypothyroidism, left thyroid nodule, headaches, scoliosis and endometriosis. PAST SURGICAL HISTORY: , right oophorectomy, coronary catheterization, right knee scope, thyroidectomy and wisdom tooth extraction. FAMILY HISTORY: Significant for kidney disease, hypertension and stroke. PRIMARY CARE PROVIDER: Dr. Mejía. MEDICATIONS: Benicar, levothyroxine, vitamin D, folic acid, tramadol, alprazolam, baclofen, Junel iron, , Pristiq, Meloxicam, biotin, Norvasc, Ambien, Lyrica, Synthroid, metoprolol and cyclobenzaprine. ALLERGIES: BENZOCAINE. SOCIAL HISTORY: The patient drinks alcohol socially. She has never used tobacco. PHYSICAL EXAMINATION: GENERAL: The patient is well developed, well-nourished, in no acute distress. HEENT: Normocephalic and atraumatic. Pupils are equal, round and reactive to light. Oropharynx is clear. NECK: Supple, no lymphadenopathy. LUNGS: Clear to auscultation bilaterally. HEART: Regular rate and rhythm. ABDOMEN: Soft, nontender and nondistended. EXTREMITIES: The right index finger demonstrates tenderness over A1 chelo. She has pain with hyperflexion at the A1 chelo. She has a positive Tinel's of carpal tunnel with positive Phalen's maneuver. She has slight thenar atrophy noted. She has decreased sensation in the median distribution. IMPRESSION: Right carpal tunnel syndrome and right index finger trigger finger. PLAN: Right carpal tunnel release and right index finger trigger release. The risks, benefits, options, ramifications and recovery have been discussed at length with the patient. She understands and wishes to proceed. Job ID: [id number] DocumentID: [id number] Dictated Date: 09/22/2019 11:09:09 Bicycle Repair Technician Date: 09/22/2019 11:40:16 Dictated By: GAETANO YAN MD
--- NOTE | 2019-09-22 15:26 | NUR ---
CALLED [facility] AND [facility]IA [facility] FOR A LIST OF RECENTLY FILLED MEDICATIONS. I COMPARED THAT LIST WITH WHAT WAS ENTERED AT [facility]OP AND CALLED THE PATIENT TO VERIFY THE DISCREPANCIES. [facility] FILLED: 08-31-19 TESSALON 100MG #30 (FINSIHED) 08-31-19 PREDNISONE 20MG #10 (FINISHED) 08-30-19 AUGMENTIN 875 #14 (FINISHED) 08-26-19 SAXENDA 3MG DAILY 08-26-19 TOPIRAMATE 50MG #60 08-05-19 TRAMADOL 50MG TID PRN #90 07-01-19 XANAX 0.5MG TID PRN #90 (TAKES 1/2 TAB AT A TIME PRN) [facility]IA [facility] FILLED: 09-17-19 SYNTHROID 100MCG DAILY 09-17-19 DESVENLAFAXINE 50MG DAILY 09-17-19 METOPROLOL SUCCINATE 25MG DAILY (STATES SHE TAKES 1/2 USUALLY BUT SOMETIMES 1) 09-17-19 OLMESARTAN 20MG DAILY 08-30-19 MELOXICAM 7.5MG BID (TAKES BOTH TABS IN AM) 08-30-19 FLEXERIL 10MG 1 HS 1/2 DAILY PRN (ONLY TAKES 1/2 AT HS NOW) 08-30-19 SHAWN 24 FE DAILY 07-06-19 LYRICA 100MG 1AM 2 HS #270 06-24-19 AMLODIPINE 5MG DAILY #90 OTC MEDS: B COMPLEX WITH C DAILY VITAMIN D 5,000 UNITS DAILY
[~2019-10-06] VITALS: Ht 167.7 cm; Wt 87.7 kg
[2019-10-06] VITALS (7 sets, daily range): BP systolic 95–151; BP diastolic 54–100
[~2019-10-06 10:00] MED LIST changes: +METO-387 PO; -MTP25TSR PO; +ONDANSETRON 4 MG (ZOFRAN) ORAL DISSOLVE TAB PO ONE; +TRAM50TA2 PO; -TRM50T PO; +oxyCODONE/APAP 5/325MG (PERCOCET 5) TABLET PO PRN
[2019-10-06] MEDS ORDERED: ceFAZolin INJECTION 1,000 MG ONE (10:32)
[2019-10-06] MEDS ORDERED: WATER (STERILE) FOR INJECTION 10 ML ONE (10:32)
[2019-10-06] MEDS ORDERED: LACTATED RINGERS 1,000 ML IV PRN (10:36)
[2019-10-06] MEDS ORDERED: ceFAZolin INJECTION 1,000 MG in WATER (STERILE) FOR INJECTION 10 ML IV ONE (10:45)
--- NOTE | 2019-10-06 10:46 | NUR ---
PT TOOK HER BENICAR, SYNTHROID AND TOPIRIMATE THIS A.M. AT 0700, REQUESTED BY SURGEON.
[2019-10-06] MEDS ORDERED: ONDANSETRON 4 MG (ZOFRAN) ORAL DISSOLVE TAB ONE (10:49)
--- NOTE | 2019-10-06 11:03 | Progress Note-Pre Operative ---
Pre-Operative Progress Note H&P Reviewed The H&P was reviewed, patient examined and no changes noted. Date Seen by Provider: Oct 06, 2019 Time Seen by Provider: 11: Date H&P Reviewed: Oct 06, 2019 Time H&P Reviewed: 11: Pre-Operative Diagnosis: right carpal tunnel syndrome and index trigger finger GAETANO YAN MD Oct 06, 2019 11:03 POS
--- NOTE | 2019-10-06 11:04 | Progress Note-Post Operative ---
Post-Operative Progess Note Surgeon (s)/Broke Beater (s) Surgeon GAETANO YAN MD Broke Beater: Ovidio Maher Pre-Operative Diagnosis right carpal tunnel syndrome and index trigger finger Post-Operative Diagnosis right carpal tunnel syndrome and index trigger finger Procedure & Operative Findings Date of Procedure 10/06/19 Procedure Performed/Findings right carpal tunnel release and index A1 chelo release Anesthesia Type MAC plus local Estimated Blood Loss Estimated blood loss (mL): minimal Specimens/Packing Specimens Removed none Packing: none GAETANO YAN MD Oct 06, 2019 11:04 POS
[2019-10-06] MEDS ORDERED: BUPIVACAINE 0.5% 30 ML (SENSORCAINE) VIAL ONE (11:18)
[2019-10-06] MEDS ORDERED: LIDOCAINE 1% INJ 20 ML 20 ML VIAL ONE (11:18)
--- NOTE | 2019-10-06 11:31 | NUR ---
PT HAS BEEN SEEN BY DR YAN IN SCD AT BEDSIDE, RESTS IN CART NOW, EYES CLOSED RESPS EVEN. REWSPONDS READILY TO VOICE GREETING, DENIES PAIN, STATING, "OH, I'M JUST UNCOMFORTABLE."
[2019-10-06] MEDS ORDERED: KETAMINE/NaCl 50 MG/5 ML SYRINGE (ED ONLY) ONE (11:40)
[2019-10-06] MEDS ORDERED: MIDAZOLAM 2 MG/2 ML (VERSED) VIAL ONE ×2 (11:40→11:44)
[2019-10-06] MEDS ORDERED: proPOfol 200 MG/20 ML (DIPRIVAN) VIAL IV ONE (11:40)
[2019-10-06] MEDS ORDERED: LIDOCAINE PF 2% 5 ML (XYLOCAINE) VIAL ONE (11:44)
[2019-10-06] MEDS ORDERED: ONDANSETRON 4 MG/2 ML (SDV) Z0FRAN ONE (12:17)
[2019-10-06] MEDS ORDERED: ONDANSETRON 4 MG/2 ML (SDV) Z0FRAN IVP PRN (12:30)
[2019-10-06] MEDS ORDERED: morphine INJ 10 MG/ML 1ML (SYR OR VIAL) IVP ONE (12:30)
[2019-10-06] MEDS ORDERED: OXYC-471 PO (12:57)
[2019-10-06] MEDS ORDERED: ONDA4TAB11 PO (13:02)
--- NOTE | 2019-10-06 13:24 | NUR ---
percoset, one po given with sprite and crackers per pt request for c/o pain rated at 3 of 10, right wrist, hand, and also suprapubic. ice pack to suprapubic region and right hand, right hand elevated. awake, speech clear, moves all extremities. walked to bathroom with escort of one, voided, then, back to [facility] into cart. s.o. at bedside.
--- NOTE | 2019-10-06 15:42 | Anesthesia-General Post-Op ---
MAC Patient Condition Mental Status/LOC: Same as Preop Cardiovascular: Satisfactory Nausea/Vomiting: Absent Respiratory: Satisfactory Pain: Controlled Complications: Absent Post Op Complications Complications None Follow Up Care/Instructions Patient Instructions None needed. Anesthesiology Discharge Order Discharge Order Patient was seen earlier after the procedure and she was doing well, no complaints, stable vital signs, no apparent adverse anesthesia problems. CHRISTIN SANCHEZ DO Oct 06, 2019 15:42 POS
--- NOTE | 2019-10-06 21:00 | OPERATIVE REPORT ---
DATE OF SERVICE: 10/06/2019 PREOPERATIVE DIAGNOSES: 1. Right carpal tunnel syndrome. 2. Right index trigger finger. POSTOPERATIVE DIAGNOSES: 1. Right carpal tunnel syndrome. 2. Right index trigger finger. PROCEDURES PERFORMED: 1. Right carpal tunnel release. 2. Right index finger A1 chelo release. SURGEON: Goran Yan MD NEEDLE FELT MAKING MACHINE OPERATOR: SCHUYLER ABDALLA, who assisted throughout the procedure and closed the incisions. ANESTHESIA: Monitored anesthesia care plus local by Dr. Stoll. TOURNIQUET TIME: 7 minutes at 250 mmHg. ESTIMATED BLOOD LOSS: Minimal. DRAINS: None. COMPLICATIONS: None. POSTOPERATIVE PLAN: Routine protocol. The patient was transferred to the recovery room awake and stable condition. STATEMENT OF MEDICAL NECESSITY: The patient is a 49-year-old right-hand dominant female with complaints of right index finger catching and locking as well as paresthesias in her right hand. An EMG nerve conduction study revealed evidence of right carpal tunnel syndrome. She has tried injections, Splint wear, anti-inflammatories and rest without relief. Due to functional impairment and failure to improve with conservative measures, the patient elected to proceed with surgical intervention. DESCRIPTION OF PROCEDURE: After risks and benefits of procedure were discussed and questions were answered, an informed consent was signed and placed on chart, the operative site was confirmed in the preoperative holding area and we are initialed by the surgeon. The patient was then transferred to the operating room. After adequate levels of monitored anesthesia care were obtained, a timeout was called, confirming the operative site. Under sterile conditions, the incision sites were infiltrated with a combination of plain lidocaine and plain Marcaine. The right upper extremity was prepped and draped in the usual sterile fashion with arm elevated, tourniquet inflated to 250 mmHg. A longitudinal incision was made in line with radial border of the ring finger over the transverse carpal ligament. The underlying soft tissues were sharply dissected exposing the transverse carpal ligament. This was then incised by pushing through with the scalpel blade while carefully protecting the median nerve. This was confirmed, fully released distally under direct visualization. Proximally, the transverse carpal ligament was spread above and below with dissection scissors and then while carefully protecting, the median nerve was fully released. This was confirmed, fully released with a freer. An incision was then made over the A1 chelo of the index finger soft tissues were bluntly dissected exposing the A1 chelo, which was then incised longitudinally. No abnormalities were noted of the flexor tendons. The finger was taken through range of motion with no catching or locking in full range of motion noted. The tourniquet was deflated for a total tourniquet time of 7 minutes. Pressure was used for hemostasis. The wounds were copiously irrigated and closed with 4-0 nylon in vertical mattress interrupted fashion. A soft dressing and a splint were applied. The patient was transferred to the recovery room awake and in stable condition. Job ID: [id number] DocumentID: [id number] Dictated Date: 10/06/2019 12:17:41 Hvac Service Tech Date: 10/06/2019 21:00:12 Dictated By: GORAN YAN MD
== END 2019-10-06 14:10 | disposition home or self-care (01) ==
LOC: SDC 10:00
PROVIDERS: ATTEND Orthopaedic Surgery
DX: G56.01 Carpal tunnel syndrome, right upper limb (principal); M65.321 Trigger finger, right index finger; I10 Essential (primary) hypertension; E03.9 Hypothyroidism, unspecified; G43.909 Migraine, unspecified, not intractable, without status migrainosus; M41.9 Scoliosis, unspecified; F41.9 Anxiety disorder, unspecified; Z88.8 Allergy status to other drugs, medicaments and biological substances; Z79.899 Other long term (current) drug therapy; Z90.710 Acquired absence of both cervix and uterus; Z82.49 Family history of ischemic heart disease and other diseases of the circulatory system; Z82.3 Family history of stroke

== ENCOUNTER → 2020-01-07 | Outpatient (CLI) | payer OTHER ==
[~2020-01-07] MED LIST changes: -METO-387 PO; +MTP25TSR PO; +ONDA4TAB11 PO; -ONDANSETRON 4 MG (ZOFRAN) ORAL DISSOLVE TAB PO ONE; +OXYC-471 PO; -TRAM50TA2 PO; +TRM50T PO; -oxyCODONE/APAP 5/325MG (PERCOCET 5) TABLET PO PRN
[2020-01-07 13:42] LABS: FREE T4 (FREE THYROXINE) 1.22 NG/DL (0.70-1.48)
== END ==
LOC: SDC 12:28
PROVIDERS: ATTEND Nurse Practitioner Family
DX: E03.9 Hypothyroidism, unspecified (principal)
CPT/HCPCS: 36415; 84439; 84443

== ENCOUNTER → 2020-04-24 | Outpatient (CLI) | payer OTHER ==
[~2020-04-24] MED LIST changes: -SIME125C86 PO; +SIME125C95 PO
[2020-04-24 11:31] LABS: FREE T4 (FREE THYROXINE) 1.04 NG/DL (0.70-1.48)
== END ==
LOC: SDC 10:28
PROVIDERS: ATTEND Family Medicine
DX: E03.9 Hypothyroidism, unspecified (principal)
CPT/HCPCS: 36415; 84439; 84443

== ENCOUNTER 2020-05-01 14:56 | Outpatient (CLI) | payer OTHER ==
[~2020-05-01] VITALS: Ht 167.7 cm; Wt 87.7 kg
[2020-05-01] MEDS ORDERED: FAMOTIDINE 20MG/2ML IV (PEPCID) ONE (15:10)
[2020-05-01] MEDS ORDERED: methylPREDNISolone 125 MG (Solu-MEDROL) VIAL ONE (15:10)
[2020-05-01] MEDS ORDERED: FAMOTIDINE 20MG/2ML IV (PEPCID) IV ONE (15:30)
[2020-05-01] MEDS ORDERED: methylPREDNISolone 125 MG (Solu-MEDROL) VIAL IV ONE (15:30)
[2020-05-01 16:15] VITALS: BP 129/84
== END 2020-05-01 16:15 | disposition home or self-care (01) ==
LOC: SDC 14:56
PROVIDERS: ATTEND Nurse Practitioner Family
DX: M79.89 Other specified soft tissue disorders (principal)
CPT/HCPCS: 96374; 96375

== ENCOUNTER → 2020-08-30 | Outpatient (CLI) | payer OTHER ==
[~2020-08-30] MED LIST changes: +AMLO-250 PO; -AMLO5TAB9 PO
--- NOTE | 2020-08-31 11:07 | Diagnostic Imaging Report ---
INDICATION: Routine screening. Comparison is made with prior mammogram 08/26/2019 and 10/17/2017. 2-D and 3-D bilateral screening mammography was performed with CAD. Both breasts remain heterogeneously dense, limiting the sensitivity of mammography. The parenchymal pattern is stable. No spiculated mass or malignant appearing microcalcifications are seen. Benign nodule in the upper right breast is stable. Axillae are unremarkable. IMPRESSION: BI-RADS Category 2 No mammographic features suspicious for malignancy are identified. ACR BI-RADS Category 2: Benign findings. Result letter will be mailed to the patient. Note: At least 10% of breast cancer is not imaged by mammography. Dictated by: Dictated on workstation # [id number]
== END ==
LOC: RAD 15:45
PROVIDERS: ATTEND Nurse Practitioner Family
DX: Z12.31 Encounter for screening mammogram for malignant neoplasm of breast (principal)
CPT/HCPCS: 77063; 77067

== ENCOUNTER → 2020-09-12 | Outpatient (CLI) | payer OTHER | LOC: LABNPT 08:36 | PROVIDERS: ATTEND Family Medicine | DX: R11.0 Nausea (principal); R19.7 Diarrhea, unspecified; Z20.828 Contact with and (suspected) exposure to other viral communicable diseases ==

== ENCOUNTER → 2021-01-26 | Outpatient (CLI) | payer OTHER ==
[~2021-01-26] MED LIST changes: -OXYC-471 PO; +OXYC1TAB11 PO
== END ==
LOC: LAB 05:43
PROVIDERS: ATTEND Family Medicine
DX: Z00.00 Encounter for general adult medical examination without abnormal findings (principal); I10 Essential (primary) hypertension; E03.9 Hypothyroidism, unspecified; Z79.899 Other long term (current) drug therapy

== ENCOUNTER → 2021-02-08 | Outpatient (CLI) | payer OTHER ==
[~2021-02-08] MED LIST changes: +BARIUM for suspension 96% w/w (Vanilla Silq Medium Density) PO ONE; +BARIUM for suspension 98% w/w (Vanilla Silq High Density) PO ONE
--- NOTE | 2021-02-08 10:12 | Diagnostic Imaging Report ---
INDICATION: Reflux. Study is also performed preoperatively prior to gastric sleeve surgery. Patient ingested effervescent crystals as well as thin and thick barium and imaging of the esophagus was performed in multiple obliquities. 51 seconds of fluoroscopic time was utilized. 36 images were obtained. Preliminary radiograph of the abdomen is unremarkable. The esophagus has a smooth contour. No mass or stricture is identified. No hiatal hernia or gastroesophageal reflux was demonstrated. Stomach has a normal configuration. No mass or ulceration is seen. The duodenal bulb is without deformity. The visualized proximal small bowel loops are unremarkable. IMPRESSION: Unremarkable upper gastrointestinal study. Dictated by: Dictated on workstation # [id number]
== END ==
LOC: RAD 09:15
PROVIDERS: ATTEND Surgery
DX: K21.9 Gastro-esophageal reflux disease without esophagitis (principal); G47.33 Obstructive sleep apnea (adult) (pediatric)
CPT/HCPCS: 74246

== ENCOUNTER 2021-06-24 15:39 | Emergency (ER) | payer OTHER ==
[~2021-06-24] VITALS: Ht 165.1 cm; Wt 97.5 kg
[~2021-06-24 15:39] MED LIST changes: -BARIUM for suspension 96% w/w (Vanilla Silq Medium Density) PO ONE; -BARIUM for suspension 98% w/w (Vanilla Silq High Density) PO ONE
--- NOTE | 2021-06-24 16:10 | ED General ---
General Chief Complaint: Cough/Cold/Flu Symptoms Stated Complaint: SOB,DIZZY,SORE THROAT Nursing Triage Note: PT AMBULATE TO ROOM 10 WITH C/O DIZZYNESS AND SORE THROAT. PT REPORTS SHE WAS OUTSIDE IN THE HEAT AND GOT DIZZY AND LIGHT HEADED AND THEN WENT INSIDE AND LAID ON THE FLOOR WHICH MADE HER FEEL BETTER. PT STATES SHE TOOK GRANDCHILD OUTSIDE TO POOL AND SYMPTOMS STARTED AGAIN. Source of Information: Patient Exam Limitations: No Limitations History of Present Illness Date Seen by Provider: Jun 24, 2021 Time Seen by Provider: 15:58 Initial Comments Patient is a 51-year-old female who presents to the emergency department today with a chief complaint of feeling dizzy and lightheaded. Patient states that she was outside for a while in the heat today and symptoms started. She went inside and laid down and felt a little bit better but then took her grandson out to the swimming pool and started having symptoms again. She states that she became a little short of breath during all of the symptoms. Not short of breath now. No cough, no fevers no chills. She denies earache but states that she did wake up with a sore throat this morning. No abdominal pain, nausea vomiting diarrhea. No urinary complaints or abnormal vaginal discharge. No swelling or pain in her extremities. She is Covid vaccinated. Got her vaccine back in October. She questions possible interaction with family members that may have been exposed to Covid. She takes medicines for hypertension, hypothyroidism. Not a smoker. All other review of systems reviewed and negative except as stated. Timing/Duration: 4-6 Hours Severity: Moderate Modifying Factors: worse with Movement Associated Systoms: Shortness of Air, Other (sore throat) Allergies and Home Medications Allergies Coded Allergies: venom-wasp (Verified Allergy, Intermediate, Ra sh/Swelling/Pain/Hives/Redness, 05/01/20) benzocaine (Verified Allergy, Unknown, RASH, 01/18/16) Home Medications Alprazolam 0.5 Mg Tablet, 0.25 MG PO TID PRN for ANXIETY, (Reported) TAKES 1/2 (0.5MG) TABLET Amlodipine Besylate 5 Mg Tablet, 5 MG PO DAILY, (Reported) B Complex with Vitamin C 1 Each Capsule, 1 CAP PO DAILY, (Reported) Cholecalciferol (Vitamin D3) 5,000 Unit Capsule, 5,000 UNIT PO DAILY, (Reported) Cyclobenzaprine HCl 10 Mg Tablet, 5 MG PO HS, (Reported) TAKES 1/2 (10MG) TABLET Desvenlafaxine Succinate 50 Mg Tab.er.24h, 50 MG PO DAILY, (Reported) Docusate Sodium 100 Mg Capsule, 100 MG PO BID PRN for CONSTIPATION-1ST LINE Prescribed by: GAETANO SHEIKH on 10/04/19713 Ibuprofen 600 Mg Tablet, 600 MG PO Q6H Prescribed by: GAETANO SHEIKH on 10/04/19713 Levothyroxine Sodium 100 Mcg Tablet, 100 MCG PO DAILY, (Reported) Liraglutide 3 Mg/0.5 Ml Pen.injctr, 3 MG SQ DAILY, (Reported) Meloxicam 7.5 Mg Tablet, 15 MG PO DAILY, (Reported) TAKES 2 (7.5MG) TABLETS Metoprolol Succinate 25 Mg Tab.er.24h, 12.5-25 MG PO HS, (Reported) TAKES 1/2 (25MG) TABLET USUALLY, SOMETIMES TAKES 1 WHOLE TAB IF NEEDED Norethindrone-E.estradiol-Iron 1 Each Tablet, 1 TAB PO DAILY, (Reported) Olmesartan Medoxomil 20 Mg Tablet, 20 MG PO DAILY, (Reported) Ondansetron 4 Mg Tab.rapdis, 4 MG PO Q4H Prescribed by: RANDY VANCE on 10/06/19 1302 Oxycodone HCl/Acetaminophen 1 Each Tablet, 1 EACH PO Q4H PRN for PAIN-SEVERE Prescribed by: RANDY VANCE on 10/06/19 1257 Pregabalin 100 Mg Capsule, 100 MG PO DAILY, (Reported) Pregabalin 100 Mg Capsule, 200 MG PO HS, (Reported) TAKES 2 (100MG) CAPSULES Simethicone 80 Mg Tab.chew, 40 MG PO TID PRN for INDIGESTION 2ND LINE Prescribed by: GAETANO SHEIKH on 10/04/19713 Topiramate 50 Mg Tablet, 50 MG PO BID, (Reported) Tramadol HCl 50 Mg Tablet, 50 MG PO TID PRN for PAIN-MODERATE (5-7), (Reported) Patient Home Medication List Home Medication List Reviewed: Yes Review of Systems Review of Systems Constitutional: dizziness, weakness EENTM: throat pain Respiratory: short of breath Cardiovascular: no symptoms reported Gastrointestinal: no symptoms reported Genitourinary: no symptoms reported Musculoskeletal: no symptoms reported Skin: no symptoms reported All Other Systems Reviewed Negative Unless Noted: Yes Past Ebcqjys-Onxhwh-Paypsv Hx Patient Social History Tobacco Use?: No Smoking Status: Never a Smoker Substance use?: No Alcohol Use?: No Pt feels they are or have been: No Immunizations Up To Date PED Vaccines UTD: No Seasonal Allergies Seasonal Allergies: No Past Medical History Surgeries: Yes Hysterectomy, Oophorectomy Respiratory: No Currently Using CPAP: No Currently Using BIPAP: No Cardiac: Yes Hypertension Neurological: Yes Headaches /Migraines Reproductive Disorders: No Female Reproductive Disorders: Endometriosis 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 Sexually Transmitted Disease: No HIV/AIDS: No Genitourinary: No Gastrointestinal: No Chronic Constipation Scoliosis Endocrine: Yes (ON SYNTHROID) Hypothyroidsim HEENT: No Cancer: No Psychosocial: Yes Anxiety Integumentary: No Blood Disorders: No Adverse Reaction/Blood Tranf: No Family Medical History Completed stroke 19 FATHER 19 MOTHER Congenital disease 19 MOTHER Dementia 19 FATHER Hypercholesterolemia 19 FATHER 19 MOTHER Hypertension 19 MOTHER G8 BROTHER G8 BROTHER Kidney disease G8 BROTHER Respiratory disorder 19 MOTHER Physical Exam Vital Signs Vital Signs - First Documented 06/24/21 15:49 Temp 35.3 Pulse 105 Resp 17 B/P (MAP) 111/94 (100) O2 Delivery Room Air Capillary Refill : Less Than 3 Seconds Height, Weight, BMI Height: 5'6.00" Weight: 165lbs. 0.0oz. 74.731166kp; 35.00 BMI Method: General Appearance: No Apparent Distress, WD/WN Eyes: Bilateral Eye Normal Inspection, Bilateral Eye PERRL, Bilateral Eye EOMI HEENT: PERRL/EOMI, TMs Normal, Normal ENT Inspection, Pharynx Normal, Other (no LAD appreciated) Neck: Full Range of Motion, Normal Inspection, Non Tender, Supple Respiratory: Lungs Clear, Normal Breath Sounds, No Accessory Muscle Use, No Respiratory Distress Cardiovascular: Regular Rate, Rhythm, Normal Peripheral Pulses Gastrointestinal: Normal Bowel Sounds, Non Tender, Soft Extremity: Normal Capillary Refill, Normal Inspection, Normal Range of Motion, Non Tender, No Calf Tenderness Neurologic/Psychiatric: Alert, Oriented x3, No Motor/Sensory Deficits, Normal Mood/Affect Skin: Normal Color, Warm/Dry Progress/Results/Core Measures Suspected Sepsis SIRS Temperature: Pulse: 105 Respiratory Rate: 17 Blood Pressure 111 /94 Mean: 100 Laboratory Tests 06/24/21 16:08: Creatinine 1.31H Results/Orders Lab Results Laboratory Tests Test 06/24/21 16:08 Range/Units Sodium Level 137 135-145 MMOL/L Potassium Level 4.5 3.6-5.0 MMOL/L Chloride Level 100 98-107 MMOL/L Carbon Dioxide Level 26 21-32 MMOL/L Anion Gap 11 5-14 MMOL/L Blood Urea Nitrogen 24 H 7-18 MG/DL Creatinine 1.31 H 0.60-1.30 MG/DL Estimat Glomerular Filtration Rate 43 BUN/Creatinine Ratio 18 Glucose Level 111 H 70-105 MG/DL Calcium Level 10.2 H 8.5-10.1 MG/DL Influenza Type A (RT-PCR) Not Detected Not Detecte Influenza Type B (RT-PCR) Not Detected Not Detecte SARS-CoV-2 RNA (RT-PCR) Not Detected Not Detecte Group A Streptococcus Screen NEGATIVE NEGATIVE My Orders Orders - LISA MICHEL MD Basic Metabolic Panel (06/24/21 16:05) Rapid Strep A Screen (06/24/21 16:05) Covid 19 Inhouse Test (06/24/21 16:05) Influenza A And B By Pcr (06/24/21 16:05) Isolation Central Supply Req (06/24/21 16:05) Ibuprofen Tablet (Motrin Tablet) (06/24/21 16:15) Medications Given in ED Current Medications Medications Dose Ordered Sig/Alexi Route Start Time Stop Time Status Last Admin Dose Admin Ibuprofen 600 mg ONCE ONCE PO 06/24/21 16:15 06/24/21 16:16 DC 06/24/21 16:16 600 MG Vital Signs/I&O 06/24/21 06/24/21 15:49 15:54 Temp 35.3 Pulse 105 Resp 17 B/P (MAP) 111/94 (100) O2 Delivery Room Air Room Air Capillary Refill : Less Than 3 Seconds Blood Pressure Mean: 100 Progress Note : Time: 17:29 Progress Note Patient's strep screen and Covid test are negative. Chemistry is unremarkable except for her renal function which shows a GFR down in the low forties. Patient's renal function was normal in December 2018. Patient states she is getting ready to have the gastric sleeve done and has been following a clear liquid diet. I recommended to her that she really push fluids hard and that she has close follow-up with Dr. Mejía to recheck her renal function panel in a week or so. Patient vital signs are stable. She has no ongoing complaints. Suspect she may have gotten overheated today as she was outside with a grandbabies for the afternoon. Very concerned about her renal function and stressed again to her that she needs close follow-up. Patient verbalizes understanding. All questions are sought and answered. Patient is stable for discharge. Departure Impression Primary Impression: Acute kidney injury Additional Impressions: Dizziness History of hypertension Disposition: HOME, SELF-CARE Condition: Stable Departure-Patient Inst. Decision time for Depature: 17:31 Referrals: MAYA MEJÍA MD (PCP/Family) Primary Care Physician Patient Instructions: Dizziness, Adult ED Add. Discharge Instructions: Push fluids hard over the next several days. Call Dr. Mejía's office for a follow-up appointment by the end of the week or early next week. Come back to the emergency department for any return or worsening of symptoms, fever, shortness of breath or any other emergent concerns. Work/School Note: Work Release Form Date Seen in the Emergency Department: Jun 24, 2021 Return to Work: Jun 26, 2021 Copy Copies To 1: MAYA MEJÍA MD, KATHRYN M MD Jun 24, 2021 16:10
[2021-06-24] MEDS ORDERED: IBUPROFEN 600 MG (MOTRIN) TAB PO ONE (16:15)
[2021-06-24 16:26] LABS: POTASSIUM 4.5 MMOL/L (3.6-5.0)
[2021-06-24 16:28] LABS: CALCIUM 10.2 MG/DL (8.5-10.1)
[2021-06-24 16:32] LABS: CREATININE SERUM 1.31 MG/DL (0.60-1.30)
[2021-06-24 17:37] VITALS: BP 131/88
== END 2021-06-24 17:37 | disposition home or self-care (01) ==
LOC: EDUNIT# 15:39 → ER 15:41
DX: N17.9 Acute kidney failure, unspecified (principal); R42 Dizziness and giddiness; I10 Essential (primary) hypertension; F41.9 Anxiety disorder, unspecified; E03.9 Hypothyroidism, unspecified; Z20.822 Contact with and (suspected) exposure to COVID-19; Z79.899 Other long term (current) drug therapy; Z79.890 Hormone replacement therapy
CPT/HCPCS: 36415; 80048; 87430; 87636

== ENCOUNTER 2021-06-28 05:30 | Outpatient (CLI) | payer OTHER ==
[~2021-06-28] VITALS: Ht 165.1 cm; Wt 99.1 kg
== END 2021-06-28 13:40 ==
LOC: PREOP 05:30
PROVIDERS: ATTEND Surgery
DX: Z01.818 Encounter for other preprocedural examination (principal)

== ENCOUNTER 2021-07-05 08:35 | Day surgery (SDC) | payer OTHER ==
--- NOTE | 2021-06-18 20:50 | HISTORY AND PHYSICAL ---
DATE OF SERVICE: DATE OF ADMISSION: 07/05/2021. ATTENDING PRIMARY CARE PHYSICIAN: Hailee Mejía MD. HISTORY OF PRESENT ILLNESS: The patient is a 51-year-old female, who is in our surgical weight loss program for the laparoscopic gastric sleeve resection and meets the medical criteria for bariatric surgery. She states that she has gained a significant amount of weight over the past 10 years. She has tried a number of diet and exercise attempts with no success. She has tried diet programs including a low-calorie, low-carbohydrate diet as well as Atkins and SlimFast with no success. She has also tried a number of exercise regimens including resistance weight training and aerobic exercise classes with no success. She has not tried any medications in the past. Her medical comorbidities related to her obesity include significant degenerative joint disease and hypertension. PAST MEDICAL HISTORY: Hypertension, degenerative joint disease, tachycardia, and hypothyroid. PAST SURGICAL HISTORY: section in 1989, exploratory laparotomy in 1994, right knee arthroscopy in 2005, total hysterectomy in 2018, cardiac catheterization in 2012, left thyroid lobectomy in 2012, right finger and carpal tunnel release in 2018 and right oophorectomy in 1994. ALLERGIES: BENZOCAINE. MEDICATIONS: Meloxicam 7.5 mg b.i.d., Flexeril 10 mg daily, Pristiq 50 mg daily, Percocet 5/325 q.8 hours p.r.n., Benicar 20 mg daily, amlodipine 5 mg daily, Metoprolol 12.5 mg daily, Lyrica 100 mg q.a.m. and 200 mg each day at bedtime, Saxenda 3 mg daily, tramadol 50 mg t.i.d., Xanax 0.5 mg t.i.d. p.r.n., and Synthroid 100 mcg daily. SOCIAL HISTORY: Negative smoke, negative alcohol. FAMILY HISTORY: Mother and father, stroke and myocardial infarction within the age range of 50-60. REVIEW OF SYSTEMS: A well-nourished female, in no acute distress. She is not experiencing any shortness of breath or difficulty in breathing. No chest pain, palpitations or diaphoresis. No nausea, vomiting, no diarrhea or constipation. No fever, chills, no recent inadvertent weight loss. All other review of systems negative. PHYSICAL EXAMINATION: VITAL SIGNS: Stable. Blood pressure 130/80, current weight 210 pounds at 5 feet 3 inches and body mass index of 36. CHEST: Clear. Good breath sounds bilaterally. HEART: Regular, no murmurs. EXTREMITIES: No lower extremity edema and negative Homans sign. ABDOMEN: Soft, nontender, and nondistended. SKIN: Warm and dry. HEENT: No scleral icterus. NECK: No cervical lymphadenopathy. ASSESSMENT AND PLAN: A 51-year-old female with morbid obesity and medical comorbidities related to her obesity including severe degenerative joint disease and hypertension, who is in our surgical weight loss program for the laparoscopic gastric sleeve resection and has undergone all the necessary evaluations and tests. All relevant information on diet and exercise before and after surgery were also explained in depth to the patient. We will schedule her for the laparoscopic gastric sleeve resection. Job ID: [id number] DocumentID: [id number] Dictated Date: 06/18/2021 19:16:17 Inspector Subassembly Date: 06/18/2021 20:49:47 Dictated By: CATHERINE LOYOLA MD MTDD
[2021-07-05] VITALS (12 sets, daily range): BP systolic 107–145; BP diastolic 58–95
[~2021-07-05] VITALS: Ht 165 cm; Wt 99.1 kg
--- NOTE | 2021-07-05 08:47 | Progress Note-Pre Operative ---
Pre-Operative Progress Note H&P Reviewed The H&P was reviewed, patient examined and no changes noted. Date Seen by Provider: Jul 05, 2021 Time Seen by Provider: 08:45 Date H&P Reviewed: Jul 05, 2021 Time H&P Reviewed: 08:40 Pre-Operative Diagnosis: Morbid obesity, HTN, DJD VAMSI BEATTY APRN Jul 05, 2021 08:47
--- NOTE | 2021-07-05 08:54 | Discharge Inst-Surgical ---
D/C Lap Instructions-KIDO Reconcile Patient Problems Problems Reviewed?: Yes New, Converted, or Re-Newed RX: RX on Chart Follow Up Appt in 2 weeks Activity as tolerated No driving for 24 hours No driving while on pain medications Incentive Spirometry use every 2 hours while awake Clear liquid diet Symptoms to Report: Fever over 101 degree F, Nausea/Vomiting Infection Signs and Symptoms to report: Increased redness, Foul odor of wound, Increased drainage Bathing instructions: May shower Operative Area Clean/Dry; Keep incision clean/dry If any problems/questions: Contact your physician or go to Emergency Room VAMSI BEATTY APRN Jul 05, 2021 08:54
[2021-07-05] MEDS ORDERED: OXYC1TAB11 PO (08:58)
[2021-07-05] MEDS ORDERED: PROM12.511 PO (08:58)
[2021-07-05] MEDS ORDERED: LIDOCAINE/EPI 1%-1:100,000 (XYLOCAINE) 20ML ONE (09:10)
[2021-07-05] MEDS ORDERED: ONDANSETRON 4 MG/2 ML (SDV) Z0FRAN IV ONE (09:15)
[2021-07-05] MEDS ORDERED: FAMOTIDINE 20MG/2ML IV (PEPCID) IV ONE (09:15)
[2021-07-05] MEDS ORDERED: ceFAZolin 2 GM IV Premixed 50 ML IV ONE (09:15)
[2021-07-05] MEDS ORDERED: SCOPOLAMINE 1.5 MG (TRANSDERM-SCOP) PATCH TOP ONE (09:15)
[2021-07-05] MEDS: LACTATED RINGERS 1,000 ML IV PRN ×3 (09:25→11:54)
[2021-07-05] MEDS ORDERED: KETOROLAC 30 MG/ML VIAL ONE (09:36)
[2021-07-05] MEDS ORDERED: proPOfol 200 MG/20 ML (DIPRIVAN) VIAL IV ONE (09:36)
[2021-07-05] MEDS ORDERED: fentaNYL INJ 100 MCG/2 ML AMP ONE (09:36)
[2021-07-05] MEDS ORDERED: ROCURONIUM 10 MG/ML 5 ML SYRINGE IV ONE (09:36)
[2021-07-05] MEDS ORDERED: LIDOCAINE PF 2% 5 ML (XYLOCAINE) VIAL ONE (09:36)
[2021-07-05] MEDS ORDERED: ONDANSETRON 4 MG/2 ML (SDV) Z0FRAN ONE (09:36)
[2021-07-05] MEDS ORDERED: MIDAZOLAM 2 MG/2 ML (VERSED) VIAL ONE (09:37)
[2021-07-05] MEDS ORDERED: fentaNYL INJ 250 MCG/5 ML AMP ONE (10:46)
[2021-07-05] MEDS ORDERED: GLYCOPYRROLATE 0.2 MG/ML (ROBINUL) 2 ML VIAL ONE (11:31)
[2021-07-05] MEDS ORDERED: NEOSTIGMINE 3 MG/3 ML VIAL ONE (11:31)
--- NOTE | 2021-07-05 11:38 | Progress Note-Post Operative ---
Post-Operative Progess Note Surgeon (s)/Photographic Press Screwmaker (s) Surgeon CATHERINE LOYOLA MD Photographic Press Screwmaker: elizabeth rodriguez RULING MACHINE FEEDER Pre-Operative Diagnosis Morbid obesity, HTN, DJD Post-Operative Diagnosis sane Procedure & Operative Findings Date of Procedure 07/05/21 Procedure Performed/Findings laparoscopic gastric sleeve resection Anesthesia Type get Estimated Blood Loss Estimated blood loss (mL): minimal Specimens/Packing Specimens Removed stomach CATHERINE LOYOLA MD Jul 05, 2021 11:38
[2021-07-05] MEDS ORDERED: diphenhydrAMINE 50 MG/ML INJ (BENADRYL) IVP PRN (11:45)
[2021-07-05] MEDS ORDERED: diphenhydrAMINE 50 MG/ML INJ (BENADRYL) IV PRN (11:45)
[2021-07-05] MEDS ORDERED: SEVOFLURANE (ULTANE) 15 ML INHAL SOLN ONE (11:45)
[2021-07-05] MEDS ORDERED: METOCLOPRAMIDE INJ 10 MG/2 ML (REGLAN) IV PRN (11:45)
[2021-07-05] MEDS ORDERED: NALOXONE 0.4 MG/ML 1 ML (NARCAN) VIAL IV PRN (11:45)
[2021-07-05] MEDS ORDERED: fentaNYL INJ 1,000 MCG in NS (IVPB) 80 ML IV SCH (11:45)
[2021-07-05] MEDS ORDERED: NS IV 1000 ML 1,000 ML IV SCH (11:45)
[2021-07-05] MEDS ORDERED: ONDANSETRON 4 MG/2 ML (SDV) Z0FRAN IV PRN (11:45)
[2021-07-05] MEDS ORDERED: ONDANSETRON 4 MG/2 ML (SDV) Z0FRAN IVP PRN (12:00)
[2021-07-05] MEDS ORDERED: PROMETHAZINE INJ 25 MG/ML (PHENERGAN) AMP IVP ONE (12:00)
[2021-07-05] MEDS ORDERED: morphine INJ 10 MG/ML 1ML (SYR OR VIAL) IVP ONE (12:00)
[2021-07-05] MEDS ORDERED: HYDROmorphone 2 MG/ML VIAL (DILAUDID) IV ONE (12:00)
[2021-07-05] MEDS ORDERED: MEPERIDINE (DEMEROL) INJ 50 MG/ML IVP ONE (12:00)
[2021-07-05] MEDS: 1/2 NS W/KCL 20 MEQ/L 1,000 ML IV SCH ×3 (13:52→20:34)
[2021-07-05] MEDS: metroNIDAZOLE 500MG/100ML IVPB 100 ML IV SCH ×2 (13:52→21:21)
--- NOTE | 2021-07-05 15:01 | OPERATIVE REPORT ---
DATE OF SERVICE: 07/05/2021 ATTENDING PRIMARY CARE PHYSICIAN: Hailee Mejía MD PREOPERATIVE DIAGNOSES: Morbid obesity, hypertension, degenerative joint disease. POSTOPERATIVE DIAGNOSES: Morbid obesity, hypertension, degenerative joint disease. PROCEDURE: Laparoscopic gastric sleeve resection. SURGEON: Catherine Mc MD. FOOD SCIENCE PROFESSOR: Jorge Lyons APRN. ANESTHESIA: General endotracheal. ESTIMATED BLOOD LOSS: Minimal. FINDINGS: No hiatal hernia. DISPOSITION: The patient tolerated the procedure well. INDICATIONS: The patient is a 51-year-old female who is in our surgical weight loss program for the laparoscopic gastric sleeve resection and meets the medical criteria for bariatric surgery. She states that she gained a significant amount of weight over the past 10 years. She has tried a number of diet and exercise attempts with no success. She has tried diet programs including low-calorie, low-carbohydrate diet as well as Prieto and SlimFast with no success. She has tried a number of exercise regimens including resistance weight training and aerobic exercise classes again with no success. She has not tried any medications in the past. Her medical comorbidities related to obesity include significant degenerative joint disease and hypertension. DESCRIPTION OF PROCEDURE: The patient was brought to the operating room, laid supine on the table. After adequate IV pain and sedative medications and general endotracheal intubation, the abdomen was prepped and draped in standard surgical fashion. A 0.5% Marcaine with epinephrine was used to anesthetize overlying skin in the left upper abdominal quadrant and a transverse skin incision made using 15 blade. An 0 silk suture was applied to the medial aspect incision for retraction and a Veress needle inserted with low opening pressure of 0 mmHg. The abdomen was then insufflated to 15 mmHg pressure. The Veress needle removed and a 5 mm XL trocar placed followed by a 5 mm 45-degree angle laparoscope visualizing the peritoneal cavity. A 4-quadrant abdominal exploration was performed. There was no significant hepatomegaly and no hiatal hernia identified. Under direct visualization, we then proceed to place a midabdominal left midline 10 mm port after the skin and peritoneal lining were anesthetized using 0.5% Marcaine with epinephrine and a transverse skin incision made using a 15 blade. In a similar manner, a midabdominal right of midline 15 mm port was placed followed by a right upper abdominal quadrant 5 mm port. The epigastric region was then anesthetized, and a transverse skin incision made using 11 blade and a tract through the abdominal wall layers was created using a trocar to a 5 mm port and through this opening, a medium sized Nathansen liver retractor was placed, and the left lobe of liver retracted anteriorly and superiorly. The patient was then placed in steep reverse Trendelenburg position. We then measured 6 cm from the pylorus along the greater curvature and marked this area with a marking pen. The gastrohepatic ligament next to the stomach was then opened using a Sonicision entering the lesser sac. We then proceeded with inferior dissection until we were 2 cm below our marking using the Sonicision. We then proceeded cephalad taking the short gastric vessels as well as the angle of His connective tissue fibers as well as the posterior stomach behind this until the left gabe of the diaphragm was identified. Good hemostasis was observed. The 38-Afghan ViSiGi gastric tube was then placed in the stomach under direct visualization and guided into the pylorus. Using this as our staple line guide, we then proceeded with the gastric sleeve resections starting with a 45 mm polyglycolic acid black load 2 cm below the previous marking. We then proceeded with a 60 mm black followed by two 60 mm purple loads and this was followed by a 45 mm purple load completing our gastric sleeve resection and leaving approximately 2 cm next to the gastroesophageal junction with visualization of good hemostasis. The staple line corners were then clipped with 5 mm clips and a leak test was performed with no leak identified. Fibrin glue was then placed onto the staple line and the omentum placed over the staple line. The liver retractor was then removed, and the stomach was removed through the 15 mm port site. The fascia and peritoneum to the 10 and 15 mm port site were then closed under direct visualization using a James-Nydia device and 0 Vicryl suture. Abdomen was desufflated and remaining ports removed. All skin incisions were closed using 4-0 Monocryl running subcuticular sutures. Wounds were then cleaned and covered with Dermabond. The patient tolerated the procedure well. We will admit her 23-hour observation and proceed with pain control with a SHIP SURVEYOR pump. We will also proceed with DVT prophylaxis with early ambulation, calf SCDs as well as Lovenox injections. Tomorrow morning, we will start a phase 1 clear liquid diet. Once she is able to tolerate 60 mL of clear liquids every 30 minutes, has adequate pain control with oral pain medication and is ambulating well, we will discharge her home and she will be instructed to do no heavy lifting or exertion for the next two weeks as well as a phase 1 clear liquid diet at the same time frame. Job ID: [id number] DocumentID: [id number] Dictated Date: 07/05/2021 11:50:39 Comic Artist Date: 07/05/2021 15:01:15 Dictated By: CATHERINE MC MD
[2021-07-05] MEDS: RT-ALBUTEROL SULF 2.5 MG/3 ML PRE-MIX VIAL INH SCH ×2 (15:04→21:49)
[2021-07-05] MEDS: METOCLOPRAMIDE INJ 10 MG/2 ML (REGLAN) IVP SCH ×2 (15:44→17:51)
[2021-07-05] MEDS: ONDANSETRON 4 MG/2 ML (SDV) Z0FRAN IVP SCH ×2 (15:44→17:51)
[2021-07-05 15:47] LABS: BASOPHILS # (AUTO) 0.1 10^3/uL (0.0-0.1); BASOPHILS % (AUTO) 1 % (0-10); EOSINOPHILS % (AUTO) 0 % (0-10); HEMATOCRIT 43 % (35-52); HEMOGLOBIN 13.8 g/dL (11.5-16.0); LYMPHOCYTES # (AUTO) 1.1 10^3/uL (1.0-4.0); LYMPHOCYTES % (AUTO) 10 % (12-44); MEAN CORPUSCULAR HEMOGLOBIN 30 pg (25-34); MEAN CORPUSCULAR HGB CONC 32 g/dL (32-36); MEAN CORPUSCULAR VOLUME 93 fL (80-99); MONOCYTES # (AUTO) 0.2 10^3/uL (0.0-1.0); MONOCYTES % (AUTO) 2 % (0-12); NEUTROPHILS # (AUTO) 9.3 10^3/uL (1.8-7.8); NEUTROPHILS % (AUTO) 87 % (42-75); PLATELET COUNT 229 10^3/uL (130-400); WHITE BLOOD COUNT 10.6 10^3/uL (4.3-11.0)
[2021-07-05 16:47] LABS: BAND NEUTROPHILS 1 %; LYMPHOCYTES % (MANUAL) 9 %; MONOCYTES % (MANUAL) 2 %; NEUTROPHILS % (MANUAL) 88 %; RBC MORPH NORMAL
[2021-07-05] MEDS: ceFAZolin 2 GM IV Premixed 50 ML IV SCH (17:51)
[2021-07-05] MEDS: ENOXAPARIN 30 MG/0.3 ML (LOVENOX) SYR SC SCH (20:33)
[2021-07-05] MEDS: fentaNYL INJ 100 MCG/2 ML AMP IVP PRN (21:21)
[2021-07-06] VITALS: BP 109/59
[2021-07-06] MEDS: METOCLOPRAMIDE INJ 10 MG/2 ML (REGLAN) IVP SCH ×2 (00:19→05:50)
[2021-07-06] MEDS: ONDANSETRON 4 MG/2 ML (SDV) Z0FRAN IVP SCH ×2 (00:19→05:50)
[2021-07-06] MEDS: ceFAZolin 2 GM IV Premixed 50 ML IV SCH ×2 (02:30→09:42)
[2021-07-06] MEDS: fentaNYL INJ 100 MCG/2 ML AMP IVP PRN ×2 (02:45→07:49)
[2021-07-06 04:00] VITALS: BP 105/64
[2021-07-06] MEDS: 1/2 NS W/KCL 20 MEQ/L 1,000 ML IV SCH (04:30)
[2021-07-06] MEDS: metroNIDAZOLE 500MG/100ML IVPB 100 ML IV SCH (05:49)
[2021-07-06 07:34] VITALS: BP 112/74
[2021-07-06] MEDS: RT-ALBUTEROL SULF 2.5 MG/3 ML PRE-MIX VIAL INH SCH (07:53)
[2021-07-06 08:26] LABS: HEMATOCRIT 39 % (35-52); HEMOGLOBIN 12.9 g/dL (11.5-16.0); MEAN CORPUSCULAR HEMOGLOBIN 31 pg (25-34); MEAN CORPUSCULAR HGB CONC 33 g/dL (32-36); MEAN CORPUSCULAR VOLUME 93 fL (80-99); MEAN PLATELET VOLUME 11.1 fL (9.0-12.2); PLATELET COUNT 238 10^3/uL (130-400); WHITE BLOOD COUNT 11.1 10^3/uL (4.3-11.0)
[2021-07-06 08:49] LABS: CALCIUM 9.5 MG/DL (8.5-10.1); CREATININE SERUM 0.75 MG/DL (0.60-1.30); POTASSIUM 3.9 MMOL/L (3.6-5.0)
[2021-07-06] MEDS ORDERED: PANTOPRAZOLE 40 MG (PROTONIX) TAB PO SCH (09:00)
[2021-07-06] MEDS ORDERED: SENNA W/DOCUSATE (SENOKOT S) TABLET PO SCH (09:00)
[2021-07-06] MEDS ORDERED: PANTOPRAZOLE 40 MG (PROTONIX) VIAL IV SCH (09:00)
[2021-07-06] MEDS: ENOXAPARIN 30 MG/0.3 ML (LOVENOX) SYR SC SCH (09:42)
[2021-07-06 11:28] VITALS: BP 120/74
[2021-07-06] MEDS ORDERED: METOCLOPRAMIDE INJ 10 MG/2 ML (REGLAN) IVP PRN (11:45)
[2021-07-06] MEDS ORDERED: ONDANSETRON 4 MG/2 ML (SDV) Z0FRAN IVP PRN (11:45)
--- NOTE | 2021-07-06 12:29 | Progress Note ---
Subjective Date Seen by a Provider: Jul 06, 2021 Time Seen by a Provider: 11:00 Subjective/Events-last exam doing well. pain controlled. tolerating phase 1 clear liquids, ambulating well. no fever/chills. Objective Exam Vital Signs Date Time Temp Pulse Resp B/P (MAP) Pulse Ox O2 Delivery O2 Flow Rate FiO2 07/06/21 11:28 36.7 93 18 120/74 (89) 96 Room Air 07/06/21 09:00 Room Air 07/06/21 07:55 98 Room Air 07/06/21 07:34 36.4 93 20 112/74 (87) 96 Room Air 07/06/21 04:00 36.2 84 18 105/64 (78) 94 Room Air 07/06/21 00:00 36.6 100 18 109/59 (76) 93 Room Air 07/05/21 21:49 94 Room Air 07/05/21 21:00 Room Air 07/05/21 20:03 36.1 108 18 145/84 (104) 93 Room Air 07/05/21 15:40 36.5 115 18 120/69 (86) 92 Room Air 07/05/21 15:06 93 Room Air 07/05/21 14:40 103 145/95 (112) Room Air 07/05/21 13:36 99 145/95 (112) Room Air 07/05/21 12:40 Room Air 07/05/21 12:40 36.1 96 20 133/84 (100) 95 Room Air 07/05/21 12:40 36.5 18 125/82 (96) 94 Room Air 07/05/21 12:30 Room Air 07/05/21 12:30 18 132/80 (97) 94 Room Air I & O 07/06/21 07:00 Intake Total 4200 ml Output Total 4100 ml Balance 100 ml Capillary Refill : General Appearance: No Apparent Distress HEENT: PERRL/EOMI Neck: Full Range of Motion Respiratory: Chest Non Tender, Lungs Clear, Normal Breath Sounds Cardiovascular: Regular Rate, Rhythm Gastrointestinal: normal bowel sounds, soft, tenderness Extremity: Normal Capillary Refill Neurologic/Psychiatric: Alert, Oriented x3 Skin: Normal Color Lymphatic: No Adenopathy Results Lab Laboratory Tests 07/05/21 15:32: White Blood Count 10.6, Red Blood Count 4.63, Hemoglobin 13.8, Hematocrit 43, Mean Corpuscular Volume 93, Mean Corpuscular Hemoglobin 30, Mean Corpuscular Hemoglobin Concent 32, Red Cell Distribution Width 12.6, Platelet Count 229, Mean Platelet Volume 11.0, Immature Granulocyte % (Auto) 0, Neutrophils (%) (Auto) 87H, Lymphocytes (%) (Auto) 10L, Monocytes (%) (Auto) 2, Eosinophils (%) (Auto) 0, Basophils (%) (Auto) 1, Neutrophils # (Auto) 9.3H, Lymphocytes # (Auto) 1.1, Monocytes # (Auto) 0.2, Eosinophils # (Auto) 0.0, Basophils # (Auto) 0.1, Immature Granulocyte # (Auto) 0.0, Neutrophils % (Manual) 88, Lymphocytes % (Manual) 9, Monocytes % (Manual) 2, Band Neutrophils 1, Blood Morphology Comment NORMAL 07/06/21 08:20: White Blood Count 11.1H, Red Blood Count 4.23, Hemoglobin 12.9, Hematocrit 39, Mean Corpuscular Volume 93, Mean Corpuscular Hemoglobin 31, Mean Corpuscular Hemoglobin Concent 33, Red Cell Distribution Width 12.8, Platelet Count 238, Mean Platelet Volume 11.1, Sodium Level 141, Potassium Level 3.9, Chloride Level 106, Carbon Dioxide Level 23, Anion Gap 12, Blood Urea Nitrogen 11, Creatinine 0.75, Estimat Glomerular Filtration Rate 82, BUN/Creatinine Ratio 15, Glucose Level 119H, Calcium Level 9.5 Microbiology 07/05/21 MRSA Screen - Final, Complete MRSA not isolated Assessment/Plan Assessment/Plan Assess & Plan/Chief Complaint s/p laparoscopic gastric sleeve resection. ambulate. continue phase 1 clear liquid diet 2 weeks. home soon. CATHERINE LOYOLA MD Jul 06, 2021 12:29
--- NOTE | 2021-07-06 12:48 | Anesthesia-General Post-Op ---
General Patient Condition Mental Status/LOC: Same as Preop Cardiovascular: Satisfactory Nausea/Vomiting: Absent Respiratory: Satisfactory Pain: Controlled Complications: Absent Post Op Complications Complications None Follow Up Care/Instructions Patient Instructions None needed. Anesthesia/Patient Condition Patient Condition Patient is doing well, no complaints, stable vital signs, no apparent adverse anesthesia problems. No complications reported per nursing. TEODORO GREENWOOD CRNA Jul 06, 2021 12:48
== END 2021-07-06 12:30 | disposition home or self-care (01) ==
LOC: SDC 08:35 → 4TH 12:29 → SDC 07-06 12:30
PROVIDERS: ATTEND Surgery
DX: E66.01 Morbid (severe) obesity due to excess calories (principal); I10 Essential (primary) hypertension; M79.7 Fibromyalgia; E03.9 Hypothyroidism, unspecified; Z79.899 Other long term (current) drug therapy; Z82.3 Family history of stroke; Z79.890 Hormone replacement therapy; Z79.891 Long term (current) use of opiate analgesic; G43.909 Migraine, unspecified, not intractable, without status migrainosus; E66.9 Obesity, unspecified; Z68.39 Body mass index [BMI] 39.0-39.9, adult; F41.9 Anxiety disorder, unspecified
CPT/HCPCS: 36415; 80048; 85007; 85027; 87081; 94640; 94664; 94760

== ENCOUNTER → 2021-08-13 | Outpatient (CLI) | payer OTHER ==
[~2021-08-13] MED LIST changes: +PROM12.511 PO
--- NOTE | 2021-08-13 10:41 | Diagnostic Imaging Report ---
HISTORY: Left foot and ankle pain. TECHNIQUE: 3 views of the left ankle COMPARISON: 03/30/2019 FINDINGS: No acute fracture or dislocation is seen in the left ankle. Alignment appears normal. Ankle mortise is symmetric and the talar dome is intact. No ankle joint effusion is seen. There is a small plantar calcaneal enthesophyte. There is mild lateral soft tissue swelling. IMPRESSION: 1. No acute fracture or dislocation is seen in the left ankle. There is mild lateral soft tissue swelling. Dictated by: Dictated on workstation # [id number]
--- NOTE | 2021-08-13 10:42 | Diagnostic Imaging Report ---
HISTORY: Left foot and ankle pain. Injury. TECHNIQUE: 3 views of the left foot COMPARISON: None FINDINGS: There is linear cortical irregularity at the anterior aspect of the lateral malleolus which may represent an avulsion fracture. Subtle linear lucency seen on the lateral view of the anterior process of the calcaneus is thought to represent artifact with no definite extension to the articular surface and no correlate on additional views. There are mild degenerative changes in the midfoot. No cortical erosions are seen. Alignment appears normal. There is a small plantar calcaneal enthesophyte. IMPRESSION: 1. Linear calcification anterior to the lateral malleolus may represent an avulsion fracture. Dictated by: Dictated on workstation # [id number]
== END ==
LOC: RAD 09:20
PROVIDERS: ATTEND Nurse Practitioner Family
DX: M25.572 Pain in left ankle and joints of left foot (principal); M25.472 Effusion, left ankle; W19.XXXA Unspecified fall, initial encounter
CPT/HCPCS: 73610; 73630

== ENCOUNTER 2021-10-08 15:30 | Outpatient (RCR) | payer OTHER ==
[~2021-10-08 15:30] MED LIST changes: +CYCL10TA25 PO; -CYCL10TA9 PO; -DIPH50CA PO; +DIPH50CA33 PO
== END 2021-10-26 | disposition home or self-care (01) ==
PROVIDERS: ATTEND Podiatrist Foot & Ankle Surgery
DX: S93.402D Sprain of unspecified ligament of left ankle, subsequent encounter (principal); X58.XXXD Exposure to other specified factors, subsequent encounter

== ENCOUNTER → 2021-12-06 | Outpatient (CLI) | payer OTHER ==
[2021-12-06 08:26] LABS: BASOPHILS # (AUTO) 0.1 10^3/uL (0.0-0.1); BASOPHILS % (AUTO) 1 % (0-10); EOSINOPHILS # (AUTO) 0.2 10^3/uL (0.0-0.3); EOSINOPHILS % (AUTO) 5 % (0-10); HEMATOCRIT 39 % (35-52); HEMOGLOBIN 12.8 g/dL (11.5-16.0); LYMPHOCYTES # (AUTO) 1.5 10^3/uL (1.0-4.0); LYMPHOCYTES % (AUTO) 31 % (12-44); MEAN CORPUSCULAR HEMOGLOBIN 30 pg (25-34); MEAN CORPUSCULAR HGB CONC 33 g/dL (32-36); MEAN CORPUSCULAR VOLUME 89 fL (80-99); MEAN PLATELET VOLUME 11.2 fL (9.0-12.2); MONOCYTES # (AUTO) 0.5 10^3/uL (0.0-1.0); MONOCYTES % (AUTO) 11 % (0-12); NEUTROPHILS # (AUTO) 2.5 10^3/uL (1.8-7.8); NEUTROPHILS % (AUTO) 51 % (42-75); PLATELET COUNT 249 10^3/uL (130-400); WHITE BLOOD COUNT 4.8 10^3/uL (4.3-11.0)
[2021-12-06 08:40] LABS: POTASSIUM 3.9 MMOL/L (3.6-5.0)
[2021-12-06 08:41] LABS: ALBUMIN 4.1 GM/DL (3.2-4.5)
[2021-12-06 08:43] LABS: TOTAL PROTEIN 7.1 GM/DL (6.4-8.2)
[2021-12-06 08:45] LABS: BILIRUBIN,TOTAL 0.7 MG/DL (0.1-1.0)
[2021-12-06 08:47] LABS: CREATININE SERUM 0.71 MG/DL (0.60-1.30)
[2021-12-06 09:10] LABS: FREE T4 (FREE THYROXINE) 1.33 NG/DL (0.70-1.48)
== END ==
LOC: SDC 07:04
PROVIDERS: ATTEND Family Medicine
DX: Z00.01 Encounter for general adult medical examination with abnormal findings (principal); I10 Essential (primary) hypertension; E55.9 Vitamin D deficiency, unspecified; E03.9 Hypothyroidism, unspecified
CPT/HCPCS: 36415; 80053; 80061; 82306; 84439; 84443; 85025

== ENCOUNTER → 2022-01-09 | Outpatient (CLI) | payer OTHER ==
--- NOTE | 2022-01-09 13:15 | Diagnostic Imaging Report ---
INDICATION: Routine screening. COMPARISON: 08/30/2020 and 08/26/2019. TECHNIQUE: 2D and 3D bilateral screening mammography was performed with CAD. FINDINGS: Both breasts are heterogeneously dense, limiting the sensitivity of mammography. A benign nodule in the upper outer right breast at posterior depth is stable. No new mass or malignant-appearing microcalcifications are seen. There are benign calcifications present. The axillae are unremarkable. IMPRESSION: No mammographic features suspicious for malignancy are identified. ACR BI-RADS Category 2: Benign findings. Result letter will be mailed to the patient. Note: At least 10% of breast cancer is not imaged by mammography. Dictated by: Dictated on workstation # [id number]
== END ==
LOC: RAD 10:42
PROVIDERS: ATTEND Obstetrics & Gynecology
DX: Z12.31 Encounter for screening mammogram for malignant neoplasm of breast (principal)
CPT/HCPCS: 77063; 77067

== ENCOUNTER → 2022-04-16 | Outpatient (CLI) | payer OTHER ==
[~2022-04-16] MED LIST changes: +LEVO88CA4 PO; +MIRA25TA PO; +PREG100C55 PO
== END ==
LOC: LAB 14:00
PROVIDERS: ATTEND Nurse Practitioner Family
DX: E03.4 Atrophy of thyroid (acquired) (principal); E04.1 Nontoxic single thyroid nodule
CPT/HCPCS: 36415; 84443

== ENCOUNTER → 2022-04-17 | Outpatient (CLI) | payer OTHER ==
[~2022-04-17] VITALS: Ht 165 cm; Wt 72.3 kg
== END | disposition home or self-care (01) ==
LOC: PREOP 05:40
PROVIDERS: ATTEND Internal Medicine
DX: Z01.818 Encounter for other preprocedural examination (principal)

== ENCOUNTER 2022-04-26 07:11 | Day surgery (SDC) | payer OTHER ==
--- NOTE | 2022-04-17 08:18 | HISTORY AND PHYSICAL ---
DATE OF SERVICE: COLONOSCOPY HISTORY AND PHYSICAL HISTORY OF PRESENT ILLNESS: The patient is a 52-year-old white female being referred by Dr. Mejía for her first screening colonoscopy. She is deemed to be possibly slightly higher than average risk as her sister had several polyps removed at the time of her first colonoscopy. She is not aware of her parents had undergone colonoscopy and is not aware of any family history for GI tract malignancy including colon cancer. She denies any problems with diarrhea or constipation and has had no melena or bright red blood per rectum. PAST MEDICAL HISTORY: Significant for hypertension and overweight status. She underwent gastric sleeve last June per Dr. Mc with significant weight loss following. She has history of Fredrick's thyroiditis, on thyroid replacement. PAST SURGICAL HISTORY: Other than gastric sleeve include partial thyroidectomy for thyroid nodule, arthroscopic knee surgery in 2005, total abdominal hysterectomy for benign reasons in 2018 and in 1989. FAMILY HISTORY: Brother has history of hypertension. Father has history of stroke and hypertension. Mother also had history of stroke, hyperlipidemia and hypertension. SOCIAL HISTORY: She is employed nurse at [employer], occasional small volume alcohol consumption with no past smoking history. REVIEW OF SYSTEMS: CONSTITUTIONAL: Denies night sweats, chills, fever. There has been weight loss status post gastric sleeve procedure. GASTROINTESTINAL: As noted in the HPI. PULMONARY: Denies cough, wheezing or shortness of breath. CARDIOVASCULAR: No chest pain, orthopnea, PND or pedal edema reported. PHYSICAL EXAMINATION: GENERAL: Reveals a white female, appears to be in no acute distress. HEENT: Unremarkable. Sclerae nonicteric. VITAL SIGNS: Blood pressure mildly elevated at 154/96, heart rate in the low 60s, regular. CHEST: Clear to auscultation. CARDIOVASCULAR: Reveals a regular rate and rhythm without murmur, S3 or S4. ABDOMEN: Reveals well-healed trocar incision sites without mass, organomegaly or tenderness. No bruits noted. Bowel sounds positive. EXTREMITIES: No cyanosis, clubbing or edema. ASSESSMENT: The patient is being set up for her first screening colonoscopy. Prep instructions with Sutab were given considering gastric sleeve surgery. Electronic medical record was reviewed. I thank you for the referral of this pleasant lady. Job ID: [id number] DocumentID: [id number] Dictated Date: 04/11/2022 16:42:04 Special Service Officer Date: 04/11/2022 17:11:35 Dictated By: BERENICE DAVIDSON MD
[~2022-04-26] VITALS: Ht 165 cm; Wt 72.3 kg
[2022-04-26] MEDS ORDERED: PROPOFOL INJECTION 50 ML IV ONE (07:17)
[2022-04-26] MEDS ORDERED: MIDAZOLAM 2 MG/2 ML (VERSED) VIAL ONE (07:17)
[2022-04-26] MEDS ORDERED: LACTATED RINGERS 1,000 ML IV ONE (07:21)
[2022-04-26] MEDS ORDERED: LACTATED RINGERS 1,000 ML IV STA (07:22)
[2022-04-26 07:30] VITALS: BP 130/94
--- NOTE | 2022-04-26 08:02 | Pre-Op Note & Conscious Sedat ---
Pre-Operative Progress Note H&P Reviewed The H&P was reviewed, patient examined and no changes noted. Date H&P Reviewed: Apr 26, 2022 Time H&P Reviewed: 07:45 Conscious Sedation Pre-Proced ASA Score 2 For ASA 3 and 4: Consider anesthesia and medical clearance. Also, for patients with a history of failed moderate sedation consider anesthesia. Airway Lungs Heart ASA score ASA 1: a normal healthy patient ASA 2: a patient with a mild systemic disease (mid diabetes, controlled hypertension, obesity ASA 3: a patient with a severe systemic disease that limits activity (angina, COPD, prior Myocardial infarction) ASA 4: a patient with an incapacitating disease that is a constant threat to life (CHF, renal failure) ASA 5: a moribund patient not expected to survive 24 hrs. (ruptured aneurysm) ASA 6: a declared brain- patient whose organs are being harvested. For emergent operations, add the letter E after the classification Mallampati Classification Grade 2 Sedation Plan Analgesia, Amnesia, Plan communicated to team members, Discussed options with patient/fam, Discussed risks with patient/fam The patient is an appropriate candidate to undergo the planned procedure, sedation, and anesthesia. The patient immediately re-assessed prior to indication. BERENICE DAVIDSON MD Apr 26, 2022 08:02
[2022-04-26 08:40] VITALS: BP 119/63
[2022-04-26 09:25] VITALS: BP 118/86
--- NOTE | 2022-04-26 09:54 | Anesthesia-General Post-Op ---
MAC Patient Condition Mental Status/LOC: Same as Preop Cardiovascular: Satisfactory Nausea/Vomiting: Absent Respiratory: Satisfactory Pain: Controlled Complications: Absent Post Op Complications Complications None Follow Up Care/Instructions Patient Instructions None needed. Anesthesiology Discharge Order Discharge Order Patient is doing well, no complaints, stable vital signs, no apparent adverse anesthesia problems. No complications reported per nursing. BRIEN CAMEJO CRNA Apr 26, 2022 09:54
--- NOTE | 2022-04-26 15:40 | OPERATIVE REPORT ---
DATE OF SERVICE: COLONOSCOPY SUMMARY INDICATION FOR THE PROCEDURE: Screening colonoscopy. DESCRIPTION OF PROCEDURE: The patient was placed in the left lateral decubitus position. Prior to undergoing colonoscopy, a digital rectal evaluation was performed. Anal sphincter tone was normal and the perianal reflexes intact. No abnormalities were noted on digital inspection of the anal canal or distal rectal vault. The colonoscope was then inserted into the rectum and under direct visualization advanced to the cecum. The cecum was identified by identification of the ileocecal valve and cecal strap. Photographic documentation was obtained. Careful inspection was made as the colonoscope was withdrawn. The patient tolerated the procedure well. FINDINGS: There was no evidence for internal or external hemorrhoids and the rectum was unremarkable. Present in the proximal sigmoid colon was a hyperplastic 2 mm polyp was biopsied and ablated and not submitted. No evidence for diverticular disease was noted. The descending colon, splenic flexure, and transverse colon were unremarkable. A 3 mm sessile polyp, adenomatous features was noted at the hepatic flexure. It was biopsied and ablated and submitted for histopathology. Remainder of the ascending colon and cecum were unremarkable. ASSESSMENT: Two polyps were removed only one submitted from the hepatic flexure. Both cauterized as noted above. As long as there are no surprises on histopathology, I would advocate consideration for a repeat screening colonoscopy in 10 years. The patient did have obstructive apnea during sedation. If she has not been evaluated for sleep apnea in the past, would recommend consideration for sleep study. I thank you for the referral of this pleasant lady. Job ID: [id number] DocumentID: [id number] Dictated Date: 04/26/2022 08:41:26 Revising Clerk Date: 04/26/2022 15:39:12 Dictated By: BERENICE DAVIDSON MD [facility]
== END 2022-04-26 09:30 | disposition home or self-care (01) ==
LOC: ENDO 07:11
PROVIDERS: ATTEND Internal Medicine
DX: Z12.11 Encounter for screening for malignant neoplasm of colon (principal); K63.5 Polyp of colon; E66.3 Overweight; Z68.26 Body mass index [BMI] 26.0-26.9, adult; E06.3 Autoimmune thyroiditis; Z79.890 Hormone replacement therapy; Z98.84 Bariatric surgery status
CPT/HCPCS: 88305

== ENCOUNTER → 2022-07-29 | Outpatient (CLI) | payer OTHER ==
[~2022-07-29] MED LIST changes: -OLME20TA21 PO; +OLME20TA75 PO
--- NOTE | 2022-07-29 15:49 | Diagnostic Imaging Report ---
INDICATION: RIGHT NECK LYMPHADENOPATHY TECHNIQUE: Multiple real time lin scale sonographic images were obtained of the soft tissue neck. CORRELATION STUDY: None. FINDINGS: Imaging of the the right aspect of the neck in the area of concern demonstrates multiple hypoechoic nodules with central echogenic foci and vascularity, favors lymph nodes. Largest is 1.2 x 1.0 x 0.8 cm. Two additional ones at approximately 1 cm in size with the fourth one, 0.6 cm in maximum size. IMPRESSION: 1. Palpable abnormality corresponds to nonspecific, mildly enlarged lymph nodes. Dictated by: Dictated on workstation # [id number]
== END ==
LOC: RAD 11:40
PROVIDERS: ATTEND Family Medicine
DX: R59.0 Localized enlarged lymph nodes (principal)
CPT/HCPCS: 76536

== ENCOUNTER → 2022-09-17 | Outpatient (CLI) | payer OTHER ==
[2022-09-17 08:37] LABS: BASOPHILS # (AUTO) 0.1 10^3/uL (0.0-0.1); BASOPHILS % (AUTO) 2 % (0-10); EOSINOPHILS # (AUTO) 0.2 10^3/uL (0.0-0.3); EOSINOPHILS % (AUTO) 3 % (0-10); HEMATOCRIT 38 % (35-52); HEMOGLOBIN 11.8 g/dL (11.5-16.0); LYMPHOCYTES # (AUTO) 1.7 10^3/uL (1.0-4.0); LYMPHOCYTES % (AUTO) 33 % (12-44); MEAN CORPUSCULAR HEMOGLOBIN 25 pg (25-34); MEAN CORPUSCULAR HGB CONC 31 g/dL (32-36); MEAN CORPUSCULAR VOLUME 80 fL (80-99); MEAN PLATELET VOLUME 10.7 fL (9.0-12.2); MONOCYTES # (AUTO) 0.5 10^3/uL (0.0-1.0); MONOCYTES % (AUTO) 9 % (0-12); NEUTROPHILS # (AUTO) 2.9 10^3/uL (1.8-7.8); NEUTROPHILS % (AUTO) 54 % (42-75); PLATELET COUNT 302 10^3/uL (130-400); WHITE BLOOD COUNT 5.3 10^3/uL (4.3-11.0)
[2022-09-17 08:54] LABS: ALBUMIN 4.3 GM/DL (3.2-4.5); POTASSIUM 4.1 MMOL/L (3.6-5.0)
[2022-09-17 08:55] LABS: CALCIUM 9.7 MG/DL (8.5-10.1)
[2022-09-17 08:57] LABS: TOTAL PROTEIN 7.8 GM/DL (6.4-8.2)
[2022-09-17 08:59] LABS: BILIRUBIN,TOTAL 0.6 MG/DL (0.1-1.0)
[2022-09-17 09:00] LABS: CREATININE SERUM 0.82 MG/DL (0.60-1.30)
[2022-09-17 09:24] LABS: FREE T4 (FREE THYROXINE) 1.04 NG/DL (0.70-1.48)
== END ==
LOC: SDC 08:08
PROVIDERS: ATTEND Family Medicine
DX: E03.4 Atrophy of thyroid (acquired) (principal); I10 Essential (primary) hypertension; R09.81 Nasal congestion; R05.9 Cough, unspecified
CPT/HCPCS: 36415; 80053; 80061; 82306; 84439; 84443; 84480; 85025; 86769

== ENCOUNTER 2023-03-26 14:15 | Outpatient (CLI) | payer OTHER ==
[~2023-03-26 14:15] MED LIST changes: +TOPI-241 PO; -TOPI50TA13 PO
[2023-03-26 14:54] LABS: BASOPHILS # (AUTO) 0.1 10^3/uL (0.0-0.1); BASOPHILS % (AUTO) 1 % (0-10); EOSINOPHILS # (AUTO) 0.3 10^3/uL (0.0-0.3); EOSINOPHILS % (AUTO) 5 % (0-10); HEMATOCRIT 37 % (35-52); HEMOGLOBIN 12.1 g/dL (11.5-16.0); LYMPHOCYTES # (AUTO) 2.4 X 10^3 (1.0-4.0); LYMPHOCYTES % (AUTO) 41 % (12-44); MEAN CORPUSCULAR HEMOGLOBIN 28 pg (25-34); MEAN CORPUSCULAR HGB CONC 33 g/dL (32-36); MEAN CORPUSCULAR VOLUME 85 fL (80-99); MEAN PLATELET VOLUME 11.1 fL (9.0-12.2); MONOCYTES # (AUTO) 0.5 X 10^3 (0.0-1.0); MONOCYTES % (AUTO) 9 % (0-12); NEUTROPHILS # (AUTO) 2.5 X 10^3 (1.8-7.8); NEUTROPHILS % (AUTO) 43 % (42-75); PLATELET COUNT 248 10^3/uL (130-400); WHITE BLOOD COUNT 5.8 10^3/uL (4.3-11.0)
[2023-03-26 15:10] LABS: ALBUMIN 4.1 GM/DL (3.2-4.5); POTASSIUM 3.9 MMOL/L (3.6-5.0)
[2023-03-26 15:12] LABS: CALCIUM 8.6 MG/DL (8.5-10.1)
[2023-03-26 15:13] LABS: TOTAL PROTEIN 7.5 GM/DL (6.4-8.2)
[2023-03-26 15:15] LABS: BILIRUBIN,TOTAL 0.3 MG/DL (0.1-1.0)
[2023-03-26 15:17] LABS: CREATININE SERUM 0.9 MG/DL (0.60-1.30)
== END 2023-03-26 17:52 ==
LOC: SDC 14:15
PROVIDERS: ATTEND Physician Assistant
DX: E89.0 Postprocedural hypothyroidism (principal); E53.8 Deficiency of other specified B group vitamins
CPT/HCPCS: 36415; 80053; 82607; 82728; 83540; 83550; 84443; 85025

== ENCOUNTER 2023-04-23 07:45 | Outpatient (CLI) | payer OTHER ==
[2023-04-23 08:03] LABS: BASOPHILS # (AUTO) 0.1 10^3/uL (0.0-0.1); BASOPHILS % (AUTO) 1 % (0-10); EOSINOPHILS # (AUTO) 0.4 10^3/uL (0.0-0.3); EOSINOPHILS % (AUTO) 6 % (0-10); HEMATOCRIT 43 % (35-52); HEMOGLOBIN 14.1 g/dL (11.5-16.0); LYMPHOCYTES # (AUTO) 2.2 10^3/uL (1.0-4.0); LYMPHOCYTES % (AUTO) 35 % (12-44); MEAN CORPUSCULAR HEMOGLOBIN 28 pg (25-34); MEAN CORPUSCULAR HGB CONC 33 g/dL (32-36); MEAN CORPUSCULAR VOLUME 86 fL (80-99); MEAN PLATELET VOLUME 10.9 fL (9.0-12.2); MONOCYTES # (AUTO) 0.6 10^3/uL (0.0-1.0); MONOCYTES % (AUTO) 9 % (0-12); NEUTROPHILS % (AUTO) 48 % (42-75); PLATELET COUNT 307 10^3/uL (130-400); WHITE BLOOD COUNT 6.3 10^3/uL (4.3-11.0)
== END 2023-04-24 07:02 ==
LOC: SDC 07:45
PROVIDERS: ATTEND Physician Assistant
DX: D50.8 Other iron deficiency anemias (principal)
CPT/HCPCS: 36415; 82728; 83540; 83550; 85025